=== PATIENT | male | born 1945 | race Caucasian/White ===

== ENCOUNTER 2022-02-12 11:20 | Inpatient (IN) | payer OTHER, SELFPAY ==
[2022-02-12] VITALS (10 sets, daily range): BP systolic 98–125; BP diastolic 71–95; PULSE 77–98; RESP 16–19; TEMP 36.1–36.5; O2SAT 93–959; BMI 24.6; BMI 24.7
--- NOTE | 2022-02-12 11:32 | EKG12_ITS ---
Test Reason : Blood Pressure : / mmHG Vent. Rate : 089 BPM Atrial Rate : 089 BPM P-R Int : 200 ms QRS Dur : 130 ms QT Int : 388 ms P-R-T Axes : 037 -18 077 degrees QTc Int : 472 ms Sinus rhythm with occasional Premature ventricular complexes Non-specific intra-ventricular conduction block Minimal voltage criteria for LVH, may be normal variant ( Oliver product ) Nonspecific T wave abnormality Abnormal ECG Confirmed by MICAH CHAPPELL, RAJESH ([id number]), international editorial producer YOLANDA YANES ([id number]) on 02/14/2022 9:16:28 AM Referred By: Confirmed By:RAJESH OBRIEN MD
--- NOTE | 2022-02-12 11:32 | EX.ED.DYSGE1 ---
HPI History of Present Illness Chief Complaint: Shortness of Breath Informant: patient, spouse/S.O. and family Narrative Narrative: 76-year-old male presenting to the emergency department with a chief complaint of dyspnea. Patient states that about 8 years ago he had prostate cancer and after being told he no longer has prostate cancer has not seen a doctor about 3 weeks ago. He went to see primary care because he developed dyspnea particularly worse with exertion. He states he had a chest x-ray was told that his lungs look normal. He denies any chest pain or chest pressure. does note some intermittent diaphoresis with exertion. He denies any eye known DVT PE risk factors. [facility] Medical History (Updated 02/12/22 @ 13:[address] Tito Goodson DO) History of prostate cancer Allergy/AdvReac Type Severity Reaction Status Date / Time Sulfa (Sulfonamide Allergy Vomiting Verified 02/12/22 11:21 Antibiotics) Social History (Updated 02/12/22 @ 11:[address] Tito Goodson DO) current gender identity: male Smoking Status: Never smoker substance use type: does not use ROS ROS ED Constitutional Constitutional ED: Denies chills or weight loss Eyes Eyes: Denies change in vision or diplopia ENT ENT ED: Denies ear pain, rhinorrhea or sore throat Cardiovascular Cardiovascular: Denies chest pain, orthopnea, palpitations or racing heartbeat Respiratory/Chest Respiratory/Chest: Reports dyspnea and dyspnea on exertion; Denies cough or orthopnea Gastrointestinal Gastrointestinal: Denies abdominal pain, diarrhea, nausea or vomiting Genitourinary Genitourinary ED: Denies dysuria, hematuria or urinary frequency Musculoskeletal Musculoskeletal: Denies arthralgias or myalgias Integumentary Denies abscess or rash Neurologic Neurologic: Denies headache(s) or weakness Psychiatric Psychiatric: Denies anxiety, depression, suicidal ideation or suicidal thoughts Endocrine Endocrinology: Denies polydipsia, polyphagia or polyuria Allergic/Immunologic Allergic/Immunologic ED: Denies mouth swelling, tongue swelling or urticaria EXAM Physical Exam Const Vital Signs: 02/12/22 11:21 02/12/22 12:37 Temperature 97.1 F L Temperature Source Temporal Pulse Rate 95 Respiratory Rate 16 Respiratory Effort Non-Labored Short of Breath Blood Pressure 119/95 H Blood Pressure Mean 103 Pulse Ox 93 Oxygen Delivery Method Room Air Room Air Positive well nourished and well developed General Appearance ED: well developed HEENT Reports normocephalic, head/scalp atraumatic and moist mucous membranes Eyes PERRL and EOMs intact bilaterally Neck no lymphadenopathy, supple and no JVD Resp normal respiratory effort and clear to auscultation bilaterally Cardio regular rate, regular rhythm and no murmurs Rate: tachycardic GI normal to inspection, nondistended, normoactive bowel sounds and non-tender Palpation: soft Back/Spine no CVA tenderness and normal ROM Extremity normal to inspection General Extremety ED: Negative for edema General Extremity: Negative for edema Neuro oriented x3 and CN's II-XII intact bilaterally Sensorium / Orientation: alert Motor Exam: strength 5/5 throughout Psych mental status grossly normal Mood & Affect: Negative for depressed or tearful Skin no rashes or lesions noted and no wounds MDM MDM MDM Narrative Medical decision making narrative: Basic blood work shows a D-dimer 0.61 that is age corrected to the normal range. Beta natruretic peptide is elevated at at 802. His troponin is normal at 49. Interpretation of the chest x-ray is a right-sided pleural effusion with CHF. Patient has no history of congestive heart failure. He has not had a cardiac evaluation would benefit from inpatient stabilization and diuresis. Lab Data Attestation: I reviewed the patient's lab results. Labs: Laboratory Results - last 24 hr 02/12/22 02/12/22 02/12/22 11:45 11:45 11:45 WBC 8.5 RBC 4.72 Hgb 14.2 Hct 41.6 MCV 88.1 MCH 30.1 MCHC 34.1 RDW Std Deviation 43.2 RDW Coeff of Jorge 13.3 Plt Count 238 MPV 8.4 Immature Gran % (Auto) 0.400 Neut % (Auto) 76.6 H Lymph % (Auto) 11.2 L [place] % (Auto) 10.4 H Eos % (Auto) 0.7 Baso % (Auto) 0.7 Absolute Neuts (auto) 6.5 Absolute Lymphs (auto) 0.95 Nucleated RBC % 0 D-Dimer Quant (PE/DVT) 0.61 H* Sodium 138 Potassium 4.2 Chloride 107 Carbon Dioxide 24.0 Anion Gap 7 BUN 22 H Creatinine 0.94 Estim Creat Clear Calc 62.66 Est GFR (MDRD) Af Amer 100 Est GFR (MDRD) Non-Af 82 BUN/Creatinine Ratio 23.4 H Glucose 111 H Calcium 8.9 Total Bilirubin 1.00 AST 20 ALT 29 Alkaline Phosphatase 52 Troponin I High Sens 49 B-Natriuretic Peptide Total Protein 7.0 Albumin 3.6 Globulin 3.4 Albumin/Globulin Ratio 1.1 02/12/22 11:45 WBC RBC Hgb Hct MCV MCH MCHC RDW Std Deviation RDW Coeff of Jorge Plt Count MPV Immature Gran % (Auto) Neut % (Auto) Lymph % (Auto) [place] % (Auto) Eos % (Auto) Baso % (Auto) Absolute Neuts (auto) Absolute Lymphs (auto) Nucleated RBC % D-Dimer Quant (PE/DVT) Sodium Potassium Chloride Carbon Dioxide Anion Gap BUN Creatinine Estim Creat Clear Calc Est GFR (MDRD) Af Amer Est GFR (MDRD) Non-Af BUN/Creatinine Ratio Glucose Calcium Total Bilirubin AST ALT Alkaline Phosphatase Troponin I High Sens B-Natriuretic Peptide 802.9 H Total Protein Albumin Globulin Albumin/Globulin Ratio Radiography Diagnostic Testing: Clinical Impression(s) from Imaging Studies Chest X-Ray 02/12/22 11:58 IMPRESSION: Small to moderate size right pleural effusion with right basilar atelectasis and/or infiltrate. Electronically Signed: Tony Gandhi MD at 12:18 EDT , Discharge Plan Dx/Rx/DC Orders Clinical Impression: CHF (congestive heart failure), Pleural effusion, Acute dyspnea Disposition Disposition: Acute Care [facility]
[2022-02-12 11:54] LABS: Absolute Lymphocyte Count 0.95 X10^3/uL (0.83-4.51); Absolute Neutrophil Count 6.5 X10^3/uL (2.0-7.7); Basophil# 0.06 X10^3/uL; Basophil% 0.7 % (0-1); Eosinophil# 0.06 X10^3/uL; Eosinophils% 0.7 % (0-5); Hematocrit 41.6 % (40-54); Hemoglobin 14.2 g/dL (13.0-16.5); Lymphocyte # 0.95 X10^3/ul (0.83-4.51); Lymphocyte % 11.2 % (19-41); Mean Corp Hgb Conc 34.1 g/dL (32-36); Mean Corpuscular Hgb 30.1 pg (27.0-32.0); Mean Corpuscular Volume 88.1 fL (80-94); Mean Platelet Vol. 8.4 fl (6.2-12.0); Monocyte# 0.88 X10^3/uL; Monocyte% 10.4 % (0-10); NRBC Flagged by Analyzer 0 % (0-5); Neutrophil # 6.48 X10^3/uL (2.7-7.7); Neutrophil % 76.6 % (47-70); Platelet Count 238 K/mm3 (150-450); RBC Distribution Width CV 13.3 % (11.6-14.6); RBC Distribution Width SD 43.2 fl (35.1-43.9); Red Blood Count 4.72 M/mm3 (4.6-6.2); White Blood Count 8.5 K/mm3 (4.4-11.0)
--- NOTE | 2022-02-12 11:58 | RAD_ITS ---
STUDY: X-RAY CHEST REASON FOR EXAM: Male, 76 years old. Dyspnea TECHNIQUE: Single AP portable view of the chest. COMPARISON: None. FINDINGS: EKG electrodes are seen. Small to moderate right pleural effusion with right basilar atelectasis and/or infiltrate. The left lung is clear. Normal size heart. Normal mediastinum and gaudencio. Normal visualized pulmonary arteries. There is atherosclerotic calcification of the aortic arch with tortuosity. There are degenerative changes of the visualized thoracic spine. Normal visualized ribs, clavicles, and shoulders. There is no demonstrated abnormality of the visualized soft tissue structures of the upper abdomen. RAD/Chest 1 View (Portable) IMPRESSION: Small to moderate size right pleural effusion with right basilar atelectasis and/or infiltrate. Electronically Signed: Tony Gandhi MD at 12:18 EDT ,
[2022-02-12 12:07] LABS: D-Dimer Quantitative (DVT/PE) 0.61 FEU/ug/m (0.27-0.49)
[2022-02-12 12:11] LABS: BNP,B-Type NATRIURETIC PEPTIDE 802.9 pg/mL (0-100)
[2022-02-12 12:12] LABS: ALB/GLOB Ratio 1.1 RATIO (0.9-2.4); AST(SGOT) 20 U/L (15-37); Alanine Aminotransfer ALT/SGPT 29 U/L (16-61); Albumin, Serum 3.6 g/dL (3.2-5.0); Alkaline Phosphatase 52 U/L (45-117); Anion Gap 7 (5-15); BUN 22 mg/dL (7-18); BUN/Creat Ratio 23.4 RATIO (10-20); Calcium,Total 8.9 mg/dL (8.5-10.1); Chloride 107 mmol/L (98-107); Creatinine, Serum 0.94 mg/dL (0.70-1.30); EST Glomerular Filtration Rate 82 mL/min (>60); Est Glom Filt Rate - Afr Amer 100 mL/min (>60); Estimated Creatinine Clearance 62.66 ml/min; Globulin 3.4 g/dL (2.2-4.2); Glucose 111 mg/dL (74-106); Potassium 4.2 mmol/L (3.5-5.1); Sodium Level 138 mmol/L (136-145); Troponin-I HS 49 pg/mL (3.0-78.0)
--- NOTE | 2022-02-12 13:25 | PCM.HP.STD ---
HPI - General General Date of Admission: 02/12/22 Date of Service: 02/12/22 Chief Complaint: Shortness of breath ongoing for some days HPI Narrative IVOLA YEPEZ, is a 76 M who presents with the above. Patient has a remote history of prostate cancer, reportedly in remission, not seen any physician for more than 8 years who comes in with complaints of shortness of breath worse with exertion. He also admits to PND but denies orthopnea. He denies any leg swelling or weight gain. He rather has lost weight. He denies any fever or chills. Denied any new medications or pvgm-diu-eaujfsl meds or herbs. He denied any dizziness or palpitations. Vitals in the ED showed blood pressure 119/95, heart rate 95, respiratory rate 16, temperature 97.5, oxygen saturation 93% on room air. WBC count 8.5 hemoglobin 14.2, platelet count 238, D-dimer 0.61, CMP was remarkable for BUN of 22, creatinine 0.94. Bnpep 802.9 Chest x-ray showed small to moderate size right pleural effusion with right basilar atelectasis and or infiltrate. [facility] Medical History History of prostate cancer Home Medications NK 02/12/22 [History Last Taken Unknown] Allergy/AdvReac Type Severity Reaction Status Date / Time Sulfa (Sulfonamide Allergy Vomiting Verified 02/12/22 11:21 Antibiotics) Family History (Updated 02/12/22 @ 18:[address] Lizette Leal MD) Mother Heart disease Father No problems noted. Surgical History (Updated 02/12/22 @ 18:[address] Lizette Leal MD) Hx of tonsillectomy Social History (Updated 02/12/22 @ 18:[address] Lizette Leal MD) household members: spouse housing: house current gender identity: male Smoking Status: Never smoker alcohol intake: never substance use type: does not use ROS ROS Narrative Constitutional: Denies: Anorexia, Chills, Fever, Night Sweats, Weight Change Eyes: Denies: Blurred vision, Cataracts, Conjunctivae Inflammation, Pain, Redness, Vision Change HEENT: Denies: Difficulty Hearing, Difficulty Swallowing, Head Aches, Hearing Changes, Sinus Congestion, Sinus Drainage Cardiovascular: See HPI Respiratory: Denies: Cough, Shortness of breath at rest, Sputum production Gastrointestinal: Denies: Abdominal Pain, Nausea, Vomiting Genitourinary: Denies: Dysuria Musculoskeletal: Denies: Joint Pain, Joint stiffness, Joint swelling, Joint Tenderness Skin: Denies: Rash, Wounds Neurological: Denies: Numbness, Tingling, Focal weakness Vital Signs Vital Signs Vital Signs: 02/12/22 11:21 02/12/22 12:37 Temperature 97.1 F L Temperature Source Temporal Pulse Rate 95 Respiratory Rate 16 Respiratory Effort Non-Labored Short of Breath Blood Pressure 119/95 H Blood Pressure Mean 103 Pulse Ox 93 Oxygen Delivery Method Room Air Room Air Weight Weight: 73.482 kg Body Mass Index (BMI) 24.6 Physical Exam Narrative Physical exam: General: Alert, Oriented x3, Cooperative, No apparent distress, not on oxygen, with mild conversational dyspnea HEENT: Atraumatic Oral: Moist Mucosa Neck: Supple Lungs: Clear to auscultation Cardiovascular: HS I+II, regular, no murmurs Abdomen: Bowel Sounds Present, Soft, Non Tender Extremities: No edema Skin: No rashes, No breakdown Neurological: Grossly intact Psych/Mental Status: Appropriate Results Lab / Micro Data Result Diagrams: 02/12/22 11:45 02/12/22 11:45 Labs: Laboratory Results - last 24 hr 02/12/22 11:45: WBC 8.5, RBC 4.72, Hgb 14.2, Hct 41.6, MCV 88.1, MCH 30.1, MCHC 34.1, RDW Std Deviation 43.2, RDW Coeff of Jorge 13.3, Plt Count 238, MPV 8.4, Immature Gran % (Auto) 0.400, Neut % (Auto) 76.6 H, Lymph % (Auto) 11.2 L, [place] % (Auto) 10.4 H, Eos % (Auto) 0.7, Baso % (Auto) 0.7, Absolute Neuts (auto) 6.5, Absolute Lymphs (auto) 0.95, Nucleated RBC % 0 02/12/22 11:45: D-Dimer Quant (PE/DVT) 0.61 H* 02/12/22 11:45: Sodium 138, Potassium 4.2, Chloride 107, Carbon Dioxide 24.0, Anion Gap 7, BUN 22 H, Creatinine 0.94, Estim Creat Clear Calc 62.66, Est GFR (MDRD) Af Amer 100, Est GFR (MDRD) Non-Af 82, BUN/Creatinine Ratio 23.4 H, Glucose 111 H, Calcium 8.9, Total Bilirubin 1.00, AST 20, ALT 29, Alkaline Phosphatase 52, Troponin I High Sens 49, Total Protein 7.0, Albumin 3.6, Globulin 3.4, Albumin/Globulin Ratio 1.1 02/12/22 11:45: B-Natriuretic Peptide 802.9 H Radiology Impression Chest X-Ray 02/12/22 11:58 IMPRESSION: Small to moderate size right pleural effusion with right basilar atelectasis and/or infiltrate. Electronically Signed: Tony Gandhi MD at 12:18 EDT , Assessment & Plan Assessment/Plan (1) CHF (congestive heart failure): (2) Pleural effusion: PLAN: Plan 1. Acute CHF, unknown EF Admitting EKG shows normal sinus rhythm Will admit to PCU, start on Lasix 40 mg IV twice daily Continue on CHF protocol Check TSH, trend troponins, 2D echo 2. History of prostate CA, in remission 3. DVT prophylaxis?heparin subcu Charges/Coding Visit Charges Inpatient E&M: 16643 Init Hosp L3
[2022-02-12] MEDS: Aspirin 325 MG Tablet PO (13:39)
[2022-02-12] MEDS: Furosemide 100 MG/10 ML Vial 60 MG IV (13:40)
--- NOTE | 2022-02-12 15:34 | ECHOD_ITS ---
Reason For Study: CHF Procedure This was a 2D Doppler, Color Flow transthoracic echocardiogram. Exam performed portable in patient room. Left Ventricle Severely dilated left ventricle. The estimated ejection fraction is 15-20 %. Right Ventricle Normal right ventricle. Normal systolic function. Atria The left atrium is moderately enlarged. Normal right atrium. Mitral Valve There is moderate mitral annular calcification. Moderate (2+) mitral valve insufficiency. Tricuspid Valve Normal tricuspid valve. Mild tricuspid valve insufficiency. Aortic Valve Moderate diffuse aortic valve calcification. Mild aortic stenosis. Mild (1+) aortic valve insufficiency. Pulmonic Valve The pulmonic valve is not well visualized. Great Vessels Normal aortic root. Pericardium/Pleural No pericardial effusion. MMode/2D Measurements & Calculations LVIDd: 6.5 cm IVSd: 0.96 cm Ao root diam: 3.3 cm LVIDs: 5.7 cm LVPWd: 1.1 cm RVDd: 2.6 cm FS: 12.5 % LAV(MOD-bp): 81.2 ml LVAd ap4: 45.4 cm2 LVAd ap2: 47.8 cm2 LAV(MOD-bp) Indexed: 44.0 ml/m2 LVLd ap4: 8.2 cm LVLd ap2: 9.2 cm LAV(MOD-sp2): 84.1 ml EDV(MOD-sp4): 201.7 ml EDV(MOD-sp2): 211.5 ml LAV(MOD-sp4): 73.4 ml EDV(sp4-el): 213.5 ml EDV(sp2-el): 210.8 ml LVAs ap4: 41.2 cm2 LVAs ap2: 42.9 cm2 LVLs ap4: 8.1 cm LVLs ap2: 9.2 cm ESV(MOD-sp4): 169.6 ml ESV(MOD-sp2): 171.2 ml ESV(sp4-el): 177.1 ml ESV(sp2-el): 169.8 ml EF(MOD-sp4): 15.9 % EF(MOD-sp2): 19.1 % EF(sp4-el): 17.0 % SV(MOD-sp4): 32.1 ml SV(MOD-sp2): 40.3 ml SV(sp4-el): 36.4 ml LA dimension(2D): 4.9 cm LA A4 area: 20.3 cm2 RA A4 area: 10.9 cm2 Doppler Measurements & Calculations MV E max jeremy: 120.2 cm/sec Lat Peak E' Jeremy: 8.3 cm/sec Med Peak E' Jeremy: 4.0 cm/sec MV A max jeremy: 140.2 cm/sec E/E' lat: 14.4 E/E' med: 30.1 MV E/A: 0.86 Ao V2 max: 206.4 cm/sec LV V1 max: 117.8 cm/sec MR max jeremy: 458.1 cm/sec Ao max P.9 mmHg LV V1 max P.6 mmHg MR max P.0 mmHg Ao V2 mean: 144.9 cm/sec LV V1 mean P.0 mmHg MR mean jeremy: 317.1 cm/sec Ao mean P.6 mmHg LV V1 mean: 80.3 cm/sec MR mean P.8 mmHg Ao V2 VTI: 38.4 cm LV V1 VTI: 18.4 cm MR VTI: 147.6 cm PA V2 max: 66.9 cm/sec TR max jeremy: 229.8 cm/sec TR max P.1 mmHg ECHO/Echo Complete Interpretation Summary The estimated ejection fraction is 15-20 %. Severe LV systolic Dysfunction Moderate Eccentric MR No prior echo to compare Ordering Physician: Lizette Leal Performed By: Savannah Ferro RCS
[2022-02-12 16:14] LABS: Thyroid Stim Hormone (TSH) 1.45 uIU/mL (0.358-3.74)
[2022-02-12] MEDS: Furosemide 40 MG/4 ML Vial IV (17:22)
[2022-02-12] MEDS: 0.9% Saline Lock 10 ML Syringe IV (17:22)
[2022-02-12 18:07] LABS: Troponin-I HS 54 pg/mL (3.0-78.0)
[2022-02-12] MEDS: Heparin Injection (Vial) 5,000 UNIT/ML VIAL 5000 UNIT SC (21:57)
[2022-02-12] MEDS: MELATONIN 3 MG TABLET PO (22:22)
[2022-02-13] VITALS (10 sets, daily range): BP systolic 100–116; BP diastolic 73–82; PULSE 73–96; RESP 12–16; TEMP 36.5–37; O2SAT 93–98
[2022-02-13] MEDS: Heparin Injection (Vial) 5,000 UNIT/ML VIAL 5000 UNIT SC ×2 (06:15→21:51)
[2022-02-13 06:58] LABS: Absolute Lymphocyte Count 1.41 X10^3/uL (0.83-4.51); Basophil# 0.04 X10^3/uL; Basophil% 0.5 % (0-1); Eosinophil# 0.13 X10^3/uL; Eosinophils% 1.7 % (0-5); Hematocrit 41.3 % (40-54); Hemoglobin 14.3 g/dL (13.0-16.5); Lymphocyte # 1.41 X10^3/ul (0.83-4.51); Lymphocyte % 18.4 % (19-41); Mean Corp Hgb Conc 34.6 g/dL (32-36); Mean Corpuscular Hgb 29.7 pg (27.0-32.0); Mean Corpuscular Volume 85.7 fL (80-94); Mean Platelet Vol. 8.7 fl (6.2-12.0); Monocyte# 1.01 X10^3/uL; Monocyte% 13.2 % (0-10); NRBC Flagged by Analyzer 0 % (0-5); Neutrophil # 5.04 X10^3/uL (2.7-7.7); Neutrophil % 65.8 % (47-70); Platelet Count 255 K/mm3 (150-450); RBC Distribution Width CV 13.2 % (11.6-14.6); RBC Distribution Width SD 41.1 fl (35.1-43.9); Red Blood Count 4.82 M/mm3 (4.6-6.2); White Blood Count 7.7 K/mm3 (4.4-11.0)
[2022-02-13 07:53] LABS: ALB/GLOB Ratio 1.1 RATIO (0.9-2.4); AST(SGOT) 20 U/L (15-37); Alanine Aminotransfer ALT/SGPT 25 U/L (16-61); Albumin, Serum 3.5 g/dL (3.2-5.0); Alkaline Phosphatase 53 U/L (45-117); Anion Gap 5 (5-15); BUN 27 mg/dL (7-18); BUN/Creat Ratio 22.3 RATIO (10-20); Chloride 102 mmol/L (98-107); Creatinine, Serum 1.21 mg/dL (0.70-1.30); EST Glomerular Filtration Rate 62 mL/min (>60); Est Glom Filt Rate - Afr Amer 74 mL/min (>60); Estimated Creatinine Clearance 48.68 ml/min; Globulin 3.2 g/dL (2.2-4.2); Glucose 99 mg/dL (74-106); Potassium 3.8 mmol/L (3.5-5.1); Protein, Total 6.7 g/dL (6.4-8.2); Sodium Level 138 mmol/L (136-145)
[2022-02-13] MEDS: Furosemide 40 MG/4 ML Vial IV (10:26)
--- NOTE | 2022-02-13 10:35 | CASEMGMT ---
RN CM Face to Face with patient for initial transition planning/care coordination assessment. RN CM introduced self and role at [facility]. Patient lying in bed, alert and oriented, family at bedside. Patient willing to participate in assessment and is able to answer all questions appropriately. Care providers, pharmacy, and demographics verified. Patient wishes to discharge home, denies need for home health at this time. Patient states he has no further needs or concerns at this time. CM to follow for discharge planning needs that may arise. PCP: Mikie Specialists: none Preferred Pharmacy: [facility] at discharge Insurance: [facility] [place] Pres[place] Benefit: none Living Will/HPOA: none LNOK: , daughter Living Arrangements: Patient lives with in a 2 story home with bed and bath on first floor. 1-2 steps to enter the home. Patient is independent at home. Transportation: rides bicycle or uses driving service DME/HHC: Patient has cane and BP cuff at home. No previous HHC or SNF. Disposition Plan: Patient to discharge home with family support and follow-up plans in place. Ira SMITH, RN, CM
--- NOTE | 2022-02-13 11:09 | CASEMGMT ---
Pt does not qualify for home oxygen per nursing. Luke BOYD CM
--- NOTE | 2022-02-13 12:34 | DCINST_ITS ---
Discharge Instructions Diet Discharge Diet: Low fat / Low cholesterol and 2000 mg Sodium Diet Activity Discharge Activity: Return to Normal Activity Follow Up Care Test Results: Test results from this visit will be discussed in further detail at your follow- up appointment, if applicable. Discharge Plan Admission Admit Date/Time: 02/12/22 13:22 Primary Reason for Your Visit: Acute CHF Attending Provider: Lizette Leal Instructions Additional Instructions / Restrictions: Continue to take all your medications as prescribed. Continue on a low-fat low-salt diet. Weigh yourself every day. Let your doctor know when you gain more than 4 pounds of weight. Follow-up with your primary care doctor within 1 week to get blood work done to check on your kidney function Follow-up with the motorcycle subassembly repairer in 2-4 weeks. Discharge Orders/Prescriptions Prescriptions: New furosemide [Lasix] 20 mg tablet 20 mg PO BID 30 Days Qty: 60 0RF Referrals / Follow Up: Carlos Costello MD [STAFF PHYSICIAN] - Within 1 Month Town Doctor,Out of [NON-STAFF] - In 1 Week Disposition Disposition (needs filled in before D/C Order can be placed): Home, Self Care
[2022-02-13 13:11] LABS: Magnesium 2.1 mg/dL (1.6-2.6)
--- NOTE | 2022-02-13 14:21 | PHA.DC.MC ---
Pharmacy Service has performed discharge medication reconciliation and counseling for this patient. 1. FUROSEMIDE 20MG PO BID The patient's discharge medication list was reviewed for discrepancies and discrepancies were resolved. Home Medications furosemide 20 mg tablet (Lasix) 20 mg PO BID 30 days #60 tabs 02/13/22 The patient was counseled on the following discharge medications and changes in medications for homegoing were reviewed. The Reason for Use, instructions for use, and potential side effects were reviewed for all new medications. The patient's questions regarding all of their medications were answered. The patient was able to verbally demonstrate an understanding of their discharge medications.
--- NOTE | 2022-02-13 15:22 | PCM.DC.SUM ---
Providers Date of Admission: 02/12/22 Date of Discharge: 02/13/22 Reason For Visit: ACUTE CHF Diagnosis Discharge Diagnosis (1) CHF (congestive heart failure): Status: Acute Code(s): I50.9 - Heart failure, unspecified (2) Pleural effusion: Status: Acute Code(s): J90 - Pleural effusion, not elsewhere classified Medications at Discharge Home Medications furosemide 20 mg tablet (Lasix) 20 mg PO BID 30 days #60 tabs 02/13/22 Hospital Course Operations None Procedures None Summary of Care Provided Minutes Spent on Discharge: 40 Hospital Course: 76-year-old male with remote history of prostate CA who comes in with progressive shortness of breath with and PND. Patient BN peptide in the emergency room was 802.9. Chest x-ray showed small to moderate size right pleural effusion and right basilar atelectasis. Patient was admitted to the progressive care unit for management of acute CHF. Managed with Lasix with improvement. EKG showed normal sinus rhythm, no acute changes. TSH was normal. 2D echo showed He was discharged on oral Lasix 20mg BID. He will follow-up with PCP within 1 week. Follow-up with cardiology within 2 weeks. Physical Exam Narrative Physical exam: General: Alert, Oriented x3, Cooperative, not on oxygen Oral: Moist Mucosa Neck: Supple Lungs: Clear to auscultation Cardiovascular: HS I+II, regular, no murmurs Abdomen: Bowel Sounds Present, Soft, Non Tender Extremities: No edema Skin: No rashes, No breakdown Neurological: Grossly intact Psych/Mental Status: Appropriate Weight / BMI Weight Weight: 71.5 kg Body Mass Index (BMI) 24.7 ABG / Lab / Microbiology Data Result Diagrams: 02/13/22 05:55 02/13/22 05:55 Laboratory: Laboratory Results - last 24 hr 02/12/22 11:45: TSH 1.45 02/12/22 17:30: Troponin I High Sens 54 02/13/22 05:55: WBC 7.7, RBC 4.82, Hgb 14.3, Hct 41.3, MCV 85.7, MCH 29.7, MCHC 34.6, RDW Std Deviation 41.1, RDW Coeff of Jorge 13.2, Plt Count 255, MPV 8.7, Immature Gran % (Auto) 0.400, Neut % (Auto) 65.8, Lymph % (Auto) 18.4 L, [place] % (Auto) 13.2 H, Eos % (Auto) 1.7, Baso % (Auto) 0.5, Absolute Neuts (auto) 5.0, Absolute Lymphs (auto) 1.41, Nucleated RBC % 0 02/13/22 05:55: Sodium 138, Potassium 3.8, Chloride 102, Carbon Dioxide 31.0, Anion Gap 5, BUN 27 H, Creatinine 1.21, Estim Creat Clear Calc 48.68, Est GFR (MDRD) Af Amer 74, Est GFR (MDRD) Non-Af 62, BUN/Creatinine Ratio 22.3 H, Glucose 99, Calcium 9.0, Total Bilirubin 1.50 H, AST 20, ALT 25, Alkaline Phosphatase 53, Total Protein 6.7, Albumin 3.5, Globulin 3.2, Albumin/Globulin Ratio 1.1 02/13/22 05:55: Magnesium 2.1 D/C Instructions Discharge Diet: Low fat / Low cholesterol and 2000 mg Sodium Diet Meaningful Use Info Meaningful Use Diagnoses (Choose all that apply): None applicable Discharge Plan Admission Admit Date/Time: 02/12/22 13:22 Primary Reason for Your Visit: Acute CHF Attending Provider: Lizette Leal Instructions Additional Instructions / Restrictions: Continue to take all your medications as prescribed. Continue on a low-fat low-salt diet. Weigh yourself every day. Let your doctor know when you gain more than 4 pounds of weight. Follow-up with your primary care doctor within 1 week to get blood work done to check on your kidney function Follow-up with the special procedures tech in 2-4 weeks. Discharge Orders/Prescriptions Prescriptions: New furosemide [Lasix] 20 mg tablet 20 mg PO BID 30 Days Qty: 60 0RF Referrals / Follow Up: Carlos Costello MD [STAFF PHYSICIAN] - Within 1 Month Town Doctor,Out of [NON-STAFF] - In 1 Week Disposition Disposition (needs filled in before D/C Order can be placed): Home, Self Care Charges/Coding Visit Charges Inpatient E&M: 30793 Disch Hosp
[2022-02-13] MEDS: MELATONIN 3 MG TABLET PO (21:51)
[2022-02-14] VITALS (11 sets, daily range): BP systolic 92–115; BP diastolic 58–87; PULSE 69–95; RESP 16–20; TEMP 36.5–37.2; O2SAT 98–99
[2022-02-14] MEDS: Heparin Injection (Vial) 5,000 UNIT/ML VIAL 5000 UNIT SC ×3 (05:10→21:45)
[2022-02-14 06:40] LABS: Absolute Lymphocyte Count 1.34 X10^3/uL (0.83-4.51); Absolute Neutrophil Count 5.2 X10^3/uL (2.0-7.7); Basophil# 0.06 X10^3/uL; Basophil% 0.8 % (0-1); Eosinophil# 0.13 X10^3/uL; Eosinophils% 1.7 % (0-5); Hematocrit 42.4 % (40-54); Hemoglobin 14.3 g/dL (13.0-16.5); Lymphocyte # 1.34 X10^3/ul (0.83-4.51); Lymphocyte % 17.8 % (19-41); Mean Corp Hgb Conc 33.7 g/dL (32-36); Mean Corpuscular Volume 89.1 fL (80-94); Mean Platelet Vol. 8.6 fl (6.2-12.0); Monocyte# 0.81 X10^3/uL; Monocyte% 10.8 % (0-10); NRBC Flagged by Analyzer 0 % (0-5); Neutrophil # 5.15 X10^3/uL (2.7-7.7); Neutrophil % 68.5 % (47-70); Platelet Count 232 K/mm3 (150-450); RBC Distribution Width CV 13.2 % (11.6-14.6); RBC Distribution Width SD 43.1 fl (35.1-43.9); Red Blood Count 4.76 M/mm3 (4.6-6.2); White Blood Count 7.5 K/mm3 (4.4-11.0)
[2022-02-14 07:11] LABS: AST(SGOT) 22 U/L (15-37); Alanine Aminotransfer ALT/SGPT 24 U/L (16-61); Albumin, Serum 3.5 g/dL (3.2-5.0); Alkaline Phosphatase 52 U/L (45-117); Anion Gap 5 (5-15); BUN 32 mg/dL (7-18); BUN/Creat Ratio 28.8 RATIO (10-20); Calcium,Total 8.8 mg/dL (8.5-10.1); Chloride 102 mmol/L (98-107); Creatinine, Serum 1.11 mg/dL (0.70-1.30); EST Glomerular Filtration Rate 68 mL/min (>60); Est Glom Filt Rate - Afr Amer 82 mL/min (>60); Estimated Creatinine Clearance 53.06 ml/min; Globulin 3.4 g/dL (2.2-4.2); Glucose 113 mg/dL (74-106); Potassium 3.7 mmol/L (3.5-5.1); Protein, Total 6.9 g/dL (6.4-8.2); Sodium Level 137 mmol/L (136-145)
--- NOTE | 2022-02-14 07:45 | PN.HOSP_ITS ---
Subjective Subjective Late entry note: Patient was seen on 02/13/22. He was supposed to be discharged but his 2D-ECHO came back abnormal. Follow-up on Acute CHF: Patient was seen and examined. He denied any chest pain or dizziness. Objective Data Objective Data Vital Signs: Vital Signs Temp Pulse Resp BP Pulse Ox O2 Del Method O2 Flow Rate 98.9 F 77 20 H 92/73 98 Room Air 0 02/14/22 03:02/14/22 03:25 02/14/22 03:02/14/22 03:25 02/14/22 03:25 02/14/22 03:25 02/13/22 10:21 Oxygen Flow Rate (L/min) [ 0 AMBULATING on Room Air] Oxygen Flow Rate (L/min) [At 0 REST on Room Air] Oxygen Delivery Method Room Air Weight: 70.5 kg Body Mass Index (BMI) 24.7 Intake & Output: Intake and Output for Last 24 Hours 02/12/22 02/13/22 02/14/22 23:59 23:59 23:59 Intake Total 1200 / 1320 120 / 120 Balance 1200 / 1320 120 / 120 Lab / Micro Data Result Diagrams: 02/14/22 06:12 02/14/22 06:12 Labs: Laboratory Results - last 24 hr 02/13/22 05:55: Sodium 138, Potassium 3.8, Chloride 102, Carbon Dioxide 31.0, Anion Gap 5, BUN 27 H, Creatinine 1.21, Estim Creat Clear Calc 48.68, Est GFR (MDRD) Af Amer 74, Est GFR (MDRD) Non-Af 62, BUN/Creatinine Ratio 22.3 H, Glucose 99, Calcium 9.0, Total Bilirubin 1.50 H, AST 20, ALT 25, Alkaline Phosphatase 53, Total Protein 6.7, Albumin 3.5, Globulin 3.2, Albumin/Globulin Ratio 1.1 02/13/22 05:55: Magnesium 2.1 02/14/22 06:12: WBC 7.5, RBC 4.76, Hgb 14.3, Hct 42.4, MCV 89.1, MCH 30.0, MCHC 33.7, RDW Std Deviation 43.1, RDW Coeff of Jorge 13.2, Plt Count 232, MPV 8.6, Immature Gran % (Auto) 0.400, Neut % (Auto) 68.5, Lymph % (Auto) 17.8 L, [place] % (Auto) 10.8 H, Eos % (Auto) 1.7, Baso % (Auto) 0.8, Absolute Neuts (auto) 5.2, Absolute Lymphs (auto) 1.34, Nucleated RBC % 0 02/14/22 06:12: Sodium 137, Potassium 3.7, Chloride 102, Carbon Dioxide 30.0, Anion Gap 5, BUN 32 H, Creatinine 1.11, Estim Creat Clear Calc 53.06, Est GFR (MDRD) Af Amer 82, Est GFR (MDRD) Non-Af 68, BUN/Creatinine Ratio 28.8 H, Glucose 113 H, Calcium 8.8, Total Bilirubin 1.40 H, AST 22, ALT 24, Alkaline Phosphatase 52, Total Protein 6.9, Albumin 3.5, Globulin 3.4, Albumin/Globulin Ratio 1.0 Radiography Diagnostic Testing: Radiology Impression Echocardiogram 02/12/22 15:34 Interpretation Summary The estimated ejection fraction is 15-20 %. Severe LV systolic Dysfunction Moderate Eccentric MR No prior echo to compare Ordering Physician: Lizette Leal Performed By: Savannah Ferro RCS Physical Exam Narrative Physical exam: General: Alert, Oriented x3, Cooperative, no apparent distress, not on oxygen, with mild conversational dyspnea HEENT: Atraumatic Oral: Moist Mucosa Neck: Supple Lungs: Clear to auscultation Cardiovascular: HS I+II, regular, no murmurs Abdomen: Bowel Sounds Present, Soft, Non Tender Extremities: No edema Skin: No rashes, No breakdown Neurological: Grossly intact Psych/Mental Status: Appropriate Assessment & Plan Assessment/Plan (1) CHF (congestive heart failure): (2) Pleural effusion: (3) Acute dyspnea: PLAN: Plan 1. Acute heart failure with reduced EF, EF 15-20% Admitting EKG shows normal sinus rhythm 2D-ECHO showed EF 15-20%, moderate +2 mitral valve/aortic insufficiency Continue on oral Lasix 2. History of prostate CA, in remission 3. DVT prophylaxis?heparin subcu Charges/Coding Visit Charges Inpatient E&M: 82546 Subs Hosp L2
--- NOTE | 2022-02-14 07:46 | PN.HOSP_ITS ---
Subjective Subjective Follow-up on acute heart failure with reduced EF: Patient was seen and examined today. I met with the and his son as well as the patient at the bedside. Answered all your questions. He denied any new complaints. He is not short of breath. Objective Data Objective Data Vital Signs: Vital Signs Temp Pulse Resp BP Pulse Ox O2 Del Method O2 Flow Rate 98.9 F 77 20 H 92/73 98 Room Air 0 02/14/22 03:25 02/14/22 03:02/14/22 03:02/14/22 03:25 02/14/22 03:02/14/22 03:25 02/13/22 10:21 Oxygen Flow Rate (L/min) [ 0 AMBULATING on Room Air] Oxygen Flow Rate (L/min) [At 0 REST on Room Air] Oxygen Delivery Method Room Air Weight: 70.5 kg Body Mass Index (BMI) 24.7 Intake & Output: Intake and Output for Last 24 Hours 02/12/22 02/13/22 02/14/22 23:59 23:59 23:59 Intake Total 1200 / 1320 120 / 120 Balance 1200 / 1320 120 / 120 Lab / Micro Data Result Diagrams: 02/14/22 06:12 02/14/22 06:12 Labs: Laboratory Results - last 24 hr 02/13/22 05:55: Sodium 138, Potassium 3.8, Chloride 102, Carbon Dioxide 31.0, Anion Gap 5, BUN 27 H, Creatinine 1.21, Estim Creat Clear Calc 48.68, Est GFR (MDRD) Af Amer 74, Est GFR (MDRD) Non-Af 62, BUN/Creatinine Ratio 22.3 H, Glucose 99, Calcium 9.0, Total Bilirubin 1.50 H, AST 20, ALT 25, Alkaline Phosphatase 53, Total Protein 6.7, Albumin 3.5, Globulin 3.2, Albumin/Globulin Ratio 1.1 02/13/22 05:55: Magnesium 2.1 02/14/22 06:12: WBC 7.5, RBC 4.76, Hgb 14.3, Hct 42.4, MCV 89.1, MCH 30.0, MCHC 33.7, RDW Std Deviation 43.1, RDW Coeff of Jorge 13.2, Plt Count 232, MPV 8.6, Immature Gran % (Auto) 0.400, Neut % (Auto) 68.5, Lymph % (Auto) 17.8 L, [place] % (Auto) 10.8 H, Eos % (Auto) 1.7, Baso % (Auto) 0.8, Absolute Neuts (auto) 5.2, Absolute Lymphs (auto) 1.34, Nucleated RBC % 0 02/14/22 06:12: Sodium 137, Potassium 3.7, Chloride 102, Carbon Dioxide 30.0, Anion Gap 5, BUN 32 H, Creatinine 1.11, Estim Creat Clear Calc 53.06, Est GFR (MDRD) Af Amer 82, Est GFR (MDRD) Non-Af 68, BUN/Creatinine Ratio 28.8 H, Glucose 113 H, Calcium 8.8, Total Bilirubin 1.40 H, AST 22, ALT 24, Alkaline Phosphatase 52, Total Protein 6.9, Albumin 3.5, Globulin 3.4, Albumin/Globulin Ratio 1.0 Radiography Diagnostic Testing: Radiology Impression Echocardiogram 02/12/22 15:34 Interpretation Summary The estimated ejection fraction is 15-20 %. Severe LV systolic Dysfunction Moderate Eccentric MR No prior echo to compare Ordering Physician: Lizette Leal Performed By: Savannah Ferro RCS Physical Exam Narrative Physical exam: General: Alert, Oriented x3, Cooperative, no apparent distress HEENT: Atraumatic Oral: Moist Mucosa Neck: Supple Lungs: Clear to auscultation Cardiovascular: HS I+II, regular, no murmurs Abdomen: Bowel Sounds Present, Soft, Non Tender Extremities: No edema Skin: No rashes, No breakdown Neurological: Grossly intact Psych/Mental Status: Appropriate Assessment & Plan Assessment/Plan (1) CHF (congestive heart failure): (2) Pleural effusion: (3) Acute dyspnea: PLAN: Plan 1. Acute heart failure with reduced EF, EF 15-20% Admitting EKG shows normal sinus rhythm 2D-ECHO showed EF 15-20%, moderate +2 mitral valve/aortic insufficiency Continue on oral Lasix 2. History of prostate CA, in remission 3. DVT prophylaxis?heparin subcu Charges/Coding Visit Charges Inpatient E&M: 98023 Subs Hosp L2
[2022-02-14] MEDS: Furosemide 20 MG Tablet PO ×2 (09:34→17:13)
--- NOTE | 2022-02-14 15:24 | CON.PCM.CA_ITS ---
Assessment & Plan Assessment/Plan (1) Acute on chronic clinical systolic heart failure: (2) Pleural effusion: PLAN: Plan 76-year-old patient, with history of epigastric upper chest discomfort patient admitted to progressive symptoms of shortness of breath The symptoms have been for the last 4 years patient noted his symptoms is getting worse on exertion especially when he is going up hills or when he was pi cking up his mail. Patient had a history of prostate cancer and has not been seen by primary care or urologist. For the last 8 years. On this admission noted patient has severe LV systolic dysfunction by echocardiogram with clinical diagnosis of acute on chronic systolic heart failure and a pleural effusion noted mainly on the right side Patient responded well to IV diuretic using Lasix 40 mg twice daily. EKG showed normal sinus, and cardiac work-up with a series of enzymes were n egative and his BNP level was elevated Cardiac care plan recommendations; 1. Patient scheduled to undergo left heart catheterization on Wednesday 2. We will review all the current medication and will consider adding beta- jordan carvedilol, Entresto, Aldactone, and based on cardiac catheterization findings, he will be seen and followed clinically by Dr. Costello to discuss cardiac care plan. All questions related to cardiac catheterization procedure and cardiac care plan at bedside for the patient and family as well as to the nursing staff. HPI Consult Data Date of Consult: 02/14/22 HPI Narrative Reason for Consultation: Patient with severe LV systolic dysfunction, EF 15-20% HPI Narrative: VIOLA YEPEZ, is a 76 M who presents [facility] Medical History (Updated 02/14/22 @ 15:[address] Heather Cloud MD) History of prostate cancer Home Medications furosemide 20 mg tablet (Lasix) 20 mg PO BID 30 days #60 tabs 02/13/22 [Rx Last Taken Unknown] Allergy/AdvReac Type Severity Reaction Status Date / Time Sulfa (Sulfonamide Allergy Vomiting Verified 02/12/22 11:21 Antibiotics) Family History (Updated 02/12/22 @ 18:[address] Lizette Leal MD) Mother Heart disease Father No problems noted. Surgical History (Updated 02/12/22 @ 18:[address] Lizette Leal MD) Hx of tonsillectomy Social History (Updated 02/12/22 @ 18:[address] Lizette Leal MD) household members: spouse housing: house current gender identity: male Smoking Status: Never smoker alcohol intake: never substance use type: does not use Physical Exam Narrative Patient seen and evaluated at bedside along with the nursing staff at bedside at time of evaluation Alert orientated x3 Not in acute distress Comfortable in bed with no symptoms of chest pain Cardiovascular exam; cardiac rhythm is sinus rhythm, S1-S2 regular, he had ejection systolic murmur in the aortic valve. No diastolic murmur Chest exam clear to auscultation bilateral. Examination lower extremity no clubbing no cyanosis no lower extremity edema. Risk Stratification Risk Stratification Applicable: Yes Age >/= 65: Yes >/= 3 CAD Risk Factors (HTN, HLD, DM, family hx of CAD, or current smoker): No Aspirin Use in the Past 7 Days: No Severe Angina (>/= episodes in 24 hours): Yes EKG ST Changes >/= 0.5mm: No Positive Cardiac Marker: No JONNY Risk Stratification Score: 2 JONNY % Risk: 8% Risk Objective Data Vital Signs: Vital Signs Temp Pulse Resp BP Pulse Ox O2 Del Method O2 Flow Rate 97.8 F 95 16 102/70 98 Room Air 0 02/14/22 13:54 02/14/22 14:59 02/14/22 13:54 02/14/22 13:54 02/14/22 13:54 02/14/22 13:54 02/13/22 10:21 Oxygen Flow Rate (L/min) [ 0 AMBULATING on Room Air] Oxygen Flow Rate (L/min) [At 0 REST on Room Air] Oxygen Delivery Method Room Air Weight: 155 lb 6.814 oz Body Mass Index (BMI) 24.7 Intake & Output: Intake and Output for Last 24 Hours 02/12/22 02/13/22 02/14/22 23:59 23:59 23:59 Intake Total 1200 / 1320 120 / 120 Balance 1200 / 1320 120 / 120 Lab / Micro Data Result Diagrams: 02/14/22 06:12 02/14/22 06:12 Labs: Laboratory Results - last 24 hr 02/14/22 06:12: WBC 7.5, RBC 4.76, Hgb 14.3, Hct 42.4, MCV 89.1, MCH 30.0, MCHC 33.7, RDW Std Deviation 43.1, RDW Coeff of Jorge 13.2, Plt Count 232, MPV 8.6, Immature Gran % (Auto) 0.400, Neut % (Auto) 68.5, Lymph % (Auto) 17.8 L, [place] % (Auto) 10.8 H, Eos % (Auto) 1.7, Baso % (Auto) 0.8, Absolute Neuts (auto) 5.2, Absolute Lymphs (auto) 1.34, Nucleated RBC % 0 02/14/22 06:12: Sodium 137, Potassium 3.7, Chloride 102, Carbon Dioxide 30.0, An ion Gap 5, BUN 32 H, Creatinine 1.11, Estim Creat Clear Calc 53.06, Est GFR ( MDRD) Af Amer 82, Est GFR (MDRD) Non-Af 68, BUN/Creatinine Ratio 28.8 H, Glucose 113 H, Calcium 8.8, Total Bilirubin 1.40 H, AST 22, ALT 24, Alkaline Phosphatase 52, Total Protein 6.9, Albumin 3.5, Globulin 3.4, Albumin/Globulin Ratio 1.0 Cardiology Labs/Tests 02/14/22 06:12: WBC 7.5, RBC 4.76, Hgb 14.3, Hct 42.4, MCV 89.1, MCH 30.0, MCHC 33.7, Plt Count 232, MPV 8.6, Immature Gran % (Auto) 0.400, Neut % (Auto) 68.5, Lymph % (Auto) 17.8 L, [place] % (Auto) 10.8 H, Eos % (Auto) 1.7, Baso % (Auto) 0.8, Absolute Neuts (auto) 5.2, Nucleated RBC % 0 02/14/22 06:12: Sodium 137, Potassium 3.7, Chloride 102, Carbon Dioxide 30.0, Anion Gap 5, BUN 32 H, Creatinine 1.11, Est GFR (MDRD) Af Amer 82, Est GFR (MDRD) Non-Af 68, BUN/Creatinine Ratio 28.8 H, Glucose 113 H, Calcium 8.8, Total Bilirubin 1.40 H Rhythm: EKG: ECHO: Stress Test: Cardiac Cath: PCI: CT Surgery: Holter monitor: EPS: PPM: CXR: Chest CT Scan: Radiography Diagnostic Testing: Radiology Impression Echocardiogram 02/12/22 15:34 Interpretation Summary The estimated ejection fraction is 15-20 %. Severe LV systolic Dysfunction Moderate Eccentric MR No prior echo to compare Ordering Physician: Lizette Leal Performed By: Savannah Ferro RCS
[2022-02-14] MEDS: MELATONIN 3 MG TABLET PO (21:44)
[2022-02-15] VITALS (13 sets, daily range): BP systolic 96–107; BP diastolic 69–75; PULSE 72–98; RESP 15–18; TEMP 36.5–36.8; O2SAT 97–100
[2022-02-15] MEDS: Heparin Injection (Vial) 5,000 UNIT/ML VIAL 5000 UNIT SC ×3 (05:53→21:54)
[2022-02-15 06:45] LABS: Absolute Lymphocyte Count 1.37 X10^3/uL (0.83-4.51); Absolute Neutrophil Count 5.7 X10^3/uL (2.0-7.7); Basophil# 0.06 X10^3/uL; Basophil% 0.7 % (0-1); Eosinophil# 0.14 X10^3/uL; Eosinophils% 1.7 % (0-5); Hematocrit 42.3 % (40-54); Hemoglobin 14.2 g/dL (13.0-16.5); Lymphocyte # 1.37 X10^3/ul (0.83-4.51); Lymphocyte % 16.5 % (19-41); Mean Corp Hgb Conc 33.6 g/dL (32-36); Mean Corpuscular Hgb 30.1 pg (27.0-32.0); Mean Corpuscular Volume 89.6 fL (80-94); Mean Platelet Vol. 8.6 fl (6.2-12.0); NRBC Flagged by Analyzer 0 % (0-5); Neutrophil # 5.71 X10^3/uL (2.7-7.7); Neutrophil % 68.6 % (47-70); Platelet Count 243 K/mm3 (150-450); RBC Distribution Width CV 13.2 % (11.6-14.6); Red Blood Count 4.72 M/mm3 (4.6-6.2); White Blood Count 8.3 K/mm3 (4.4-11.0)
[2022-02-15 07:10] LABS: AST(SGOT) 25 U/L (15-37); Alanine Aminotransfer ALT/SGPT 28 U/L (16-61); Albumin, Serum 3.7 g/dL (3.2-5.0); Alkaline Phosphatase 57 U/L (45-117); Anion Gap 6 (5-15); BUN 27 mg/dL (7-18); Calcium,Total 9.3 mg/dL (8.5-10.1); Chloride 101 mmol/L (98-107); Creatinine, Serum 1.08 mg/dL (0.70-1.30); EST Glomerular Filtration Rate 70 mL/min (>60); Est Glom Filt Rate - Afr Amer 85 mL/min (>60); Estimated Creatinine Clearance 54.54 ml/min; Globulin 3.6 g/dL (2.2-4.2); Glucose 116 mg/dL (74-106); Potassium 3.6 mmol/L (3.5-5.1); Protein, Total 7.3 g/dL (6.4-8.2); Sodium Level 138 mmol/L (136-145)
--- NOTE | 2022-02-15 08:10 | PN.HOSP_ITS ---
Subjective Subjective Follow-up on acute heart failure with reduced EF: Patient was seen and examined today.?Denies chest pain, dizziness, palpitations. Objective Data Objective Data Vital Signs: Vital Signs Temp Pulse Resp BP Pulse Ox O2 Del Method O2 Flow Rate 98.3 F 83 18 96/72 100 Room Air 0 02/15/22 04:32 02/15/22 07:00 02/15/22 04:32 02/15/22 04:32 02/15/22 04:32 02/15/22 04:32 02/13/22 10:21 Oxygen Flow Rate (L/min) [ 0 AMBULATING on Room Air] Oxygen Flow Rate (L/min) [At 0 REST on Room Air] Oxygen Delivery Method Room Air Weight: 71.6 kg Body Mass Index (BMI) 24.7 Intake & Output: Intake and Output for Last 24 Hours 02/13/22 02/14/22 02/15/22 23:59 23:59 23:59 Intake Total 1200 / 1320 120 / 120 Balance 1200 / 1320 120 / 120 Lab / Micro Data Result Diagrams: 02/15/22 06:30 02/15/22 06:30 Labs: Laboratory Results - last 24 hr 02/15/22 06:30: WBC 8.3, RBC 4.72, Hgb 14.2, Hct 42.3, MCV 89.6, MCH 30.1, MCHC 33.6, RDW Std Deviation 43.0, RDW Coeff of Jorge 13.2, Plt Count 243, MPV 8.6, Immature Gran % (Auto) 0.500, Neut % (Auto) 68.6, Lymph % (Auto) 16.5 L, [place] % (Auto) 12.0 H, Eos % (Auto) 1.7, Baso % (Auto) 0.7, Absolute Neuts (auto) 5.7, Absolute Lymphs (auto) 1.37, Nucleated RBC % 0 02/15/22 06:30: Sodium 138, Potassium 3.6, Chloride 101, Carbon Dioxide 31.0, Anion Gap 6, BUN 27 H, Creatinine 1.08, Estim Creat Clear Calc 54.54, Est GFR (MDRD) Af Amer 85, Est GFR (MDRD) Non-Af 70, BUN/Creatinine Ratio 25.0 H, Glucose 116 H, Calcium 9.3, Total Bilirubin 1.20 H, AST 25, ALT 28, Alkaline Phosphatase 57, Total Protein 7.3, Albumin 3.7, Globulin 3.6, Albumin/Globulin Ratio 1.0 Physical Exam Narrative Physical exam: General: Alert, Oriented x3, Cooperative, no apparent distress HEENT: Atraumatic Oral: Moist Mucosa Neck: Supple Lungs: Clear to auscultation Cardiovascular: HS I+II, regular, no murmurs Abdomen: Bowel Sounds Present, Soft, Non Tender Extremities: No edema Skin: No rashes, No breakdown Neurological: Grossly intact Psych/Mental Status: Appropriate Assessment & Plan Assessment/Plan (1) CHF (congestive heart failure): (2) Pleural effusion: (3) Acute dyspnea: PLAN: Plan 1. Acute heart failure with reduced EF, EF 15-20% Admitting EKG shows normal sinus rhythm 2D-ECHO showed EF 15-20%, moderate +2 mitral valve/aortic insufficiency Cardiology consulted, going for cardiac cath in am Continue on oral Lasix 2. History of prostate CA, in remission 3. DVT prophylaxis?heparin subcu Charges/Coding Visit Charges Inpatient E&M: 14618 Subs Hosp L2
[2022-02-15] MEDS: Furosemide 20 MG Tablet PO ×2 (09:29→17:10)
--- NOTE | 2022-02-15 15:11 | PN.CARD_ITS ---
Subjective Subjective Seen and evaluated today at bedside, and son at bedside at time of evaluation No symptoms reported sitting comfortably in a chair. Objective Data Vital Signs: Vital Signs Temp Pulse Resp BP Pulse Ox O2 Del Method O2 Flow Rate 97.8 F 86 16 98/69 97 Room Air 0 02/15/22 14:58 02/15/22 14:58 02/15/22 14:58 02/15/22 14:58 02/15/22 14:58 02/15/22 14:58 02/13/22 10:21 Oxygen Flow Rate (L/min) [ 0 AMBULATING on Room Air] Oxygen Flow Rate (L/min) [At 0 REST on Room Air] Oxygen Delivery Method Room Air Weight: 157 lb 13.616 oz Body Mass Index (BMI) 24.7 Intake & Output: Intake and Output for Last 24 Hours 02/13/22 02/14/22 02/15/22 23:59 23:59 23:59 Intake Total 1200 / 1320 120 / 120 Balance 1200 / 1320 120 / 120 Lab / Micro Data Result Diagrams: 02/15/22 06:30 02/15/22 06:30 Labs: Laboratory Results - last 24 hr 02/15/22 06:30: WBC 8.3, RBC 4.72, Hgb 14.2, Hct 42.3, MCV 89.6, MCH 30.1, MCHC 33.6, RDW Std Deviation 43.0, RDW Coeff of Jorge 13.2, Plt Count 243, MPV 8.6, Immature Gran % (Auto) 0.500, Neut % (Auto) 68.6, Lymph % (Auto) 16.5 L, [place] % (Auto) 12.0 H, Eos % (Auto) 1.7, Baso % (Auto) 0.7, Absolute Neuts (auto) 5.7, Absolute Lymphs (auto) 1.37, Nucleated RBC % 0 02/15/22 06:30: Sodium 138, Potassium 3.6, Chloride 101, Carbon Dioxide 31.0, Anion Gap 6, BUN 27 H, Creatinine 1.08, Estim Creat Clear Calc 54.54, Est GFR (MDRD) Af Amer 85, Est GFR (MDRD) Non-Af 70, BUN/Creatinine Ratio 25.0 H, Glucose 116 H, Calcium 9.3, Total Bilirubin 1.20 H, AST 25, ALT 28, Alkaline Phosphatase 57, Total Protein 7.3, Albumin 3.7, Globulin 3.6, Albumin/Globulin Ratio 1.0 Cardiology Labs/Tests 02/15/22 06:30: WBC 8.3, RBC 4.72, Hgb 14.2, Hct 42.3, MCV 89.6, MCH 30.1, MCHC 33.6, Plt Count 243, MPV 8.6, Immature Gran % (Auto) 0.500, Neut % (Auto) 68.6, Lymph % (Auto) 16.5 L, [place] % (Auto) 12.0 H, Eos % (Auto) 1.7, Baso % (Auto) 0.7, Absolute Neuts (auto) 5.7, Nucleated RBC % 0 02/15/22 06:30: Sodium 138, Potassium 3.6, Chloride 101, Carbon Dioxide 31.0, Anion Gap 6, BUN 27 H, Creatinine 1.08, Est GFR (MDRD) Af Amer 85, Est GFR (M DRD) Non-Af 70, BUN/Creatinine Ratio 25.0 H, Glucose 116 H, Calcium 9.3, Total Bilirubin 1.20 H Rhythm: EKG: ECHO: Stress Test: Cardiac Cath: PCI: CT Surgery: Holter monitor: EPS: PPM: CXR: Chest CT Scan: Physical Exam Narrative 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 Assessment & Plan Assessment/Plan (1) Acute dyspnea: (2) Pleural effusion: (3) CHF (congestive heart failure): (4) Acute on chronic clinical systolic heart failure: PLAN: 76-year-old patient, patient has symptoms of progressive shortness of breath with chest discomfort Has been over the last 4 years which progressively got worse recently. Patient had abnormal echocardiogram with severe LV dysfunction ejection fraction 15-20% Moderate mitral valve regurgitation. Patient has a remote history of prostate cancer in remission. Cardiac care plan recommendations; 1. I reviewed and discussed the current medication continue current treatment 2. Patient will be evaluated further with cardiac catheterization. To assess for ischemic cardiomyopathy And also evaluation of the mitral and aortic valve
[2022-02-15] MEDS: 0.9% Saline Lock 10 ML Syringe IV (21:54)
[2022-02-15] MEDS: MELATONIN 3 MG TABLET PO (21:54)
[2022-02-16] VITALS (19 sets, daily range): BP systolic 91–115; BP diastolic 60–98; PULSE 61–101; RESP 13–18; TEMP 36.6–37.1; O2SAT 96–99
--- NOTE | 2022-02-16 08:17 | PCM.PN.HOSP ---
Subjective Subjective Patient is a 76-year-old gentleman who presented with progressive shortness of breath with associated cough over period of months. Echo obtained on admission demonstrated EF of 15 to 20% 02/16/2022 patient seen still complains of persistent cough and shortness of breath. Scheduled to undergo left heart catheterization Objective Data Objective Data Vital Signs: Vital Signs Temp Pulse Resp BP Pulse Ox O2 Del Method O2 Flow Rate 98.5 F 101 H 13 110/77 99 Room Air 0 02/16/22 02:45 02/16/22 06:59 02/16/22 02:45 02/16/22 02:45 02/16/22 02:45 02/16/22 02:45 02/13/22 10:21 Oxygen Flow Rate (L/min) [ 0 AMBULATING on Room Air] Oxygen Flow Rate (L/min) [At 0 REST on Room Air] Oxygen Delivery Method Room Air Weight: 71.7 kg Body Mass Index (BMI) 24.7 Intake & Output: Intake and Output for Last 24 Hours 02/14/22 02/15/22 02/16/22 23:59 23:59 23:59 Intake Total 120 / 120 Balance 120 / 120 Lab / Micro Data Result Diagrams: 02/15/22 06:30 02/15/22 06:30 Physical Exam Narrative GENERAL: cooperative HEENT: Atraumatic; EYES; Anicteric, Normal Conjunctiva NECK; supple, normal thyroid, RESPIRATORY: Diminished to auscultation CARDIOVASCULAR: Regular S1 S2, GI: soft, normoactive bowel sounds, : No Renal angle tenderness; EXTREMITIES: no edema, no clubbing, MUSCULOSKELETAL: no muscle wasting NEURO: Awake; no lateralizing signs. SKIN: No Rash PSYCH; Flat affect Assessment & Plan Assessment/Plan (1) CHF (congestive heart failure): (2) Pleural effusion: (3) Acute dyspnea: PLAN: Plan Patient is a 76-year-old gentleman who presented with progressive shortness of breath with associated cough over period of months. Echo obtained on admission demonstrated EF of 15 to 20% 1. Acute congestive heart failure with reduced ejection fraction ? 2D-ECHO showed EF 15-20%, moderate +2 mitral valve/aortic insufficiency. Patient has been managed with diuretics consult placed to cardiology plans for patient to undergo left heart catheterization on 02/16/2022 2. 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 DVT prophylaxis ? On SC heparin Charges/Coding Visit Charges Inpatient E&M: 34891 Subs Hosp L2
[2022-02-16] MEDS: Furosemide 20 MG Tablet PO ×2 (08:49→17:14)
[2022-02-16 10:44] LABS: Absolute Lymphocyte Count 1.16 X10^3/uL (0.83-4.51); Absolute Neutrophil Count 4.9 X10^3/uL (2.0-7.7); Basophil# 0.06 X10^3/uL; Basophil% 0.9 % (0-1); Eosinophil# 0.08 X10^3/uL; Eosinophils% 1.2 % (0-5); Hematocrit 41.2 % (40-54); Hemoglobin 14.1 g/dL (13.0-16.5); Lymphocyte # 1.16 X10^3/ul (0.83-4.51); Lymphocyte % 16.9 % (19-41); Mean Corp Hgb Conc 34.2 g/dL (32-36); Mean Corpuscular Hgb 30.2 pg (27.0-32.0); Mean Corpuscular Volume 88.2 fL (80-94); Mean Platelet Vol. 8.6 fl (6.2-12.0); Monocyte# 0.67 X10^3/uL; Monocyte% 9.8 % (0-10); NRBC Flagged by Analyzer 0 % (0-5); Neutrophil # 4.86 X10^3/uL (2.7-7.7); Neutrophil % 70.8 % (47-70); Platelet Count 259 K/mm3 (150-450); RBC Distribution Width CV 13.2 % (11.6-14.6); RBC Distribution Width SD 42.6 fl (35.1-43.9); Red Blood Count 4.67 M/mm3 (4.6-6.2); White Blood Count 6.9 K/mm3 (4.4-11.0)
[2022-02-16 11:09] LABS: Anion Gap 8 (5-15); BUN 23 mg/dL (7-18); BUN/Creat Ratio 22.5 RATIO (10-20); Calcium,Total 9.4 mg/dL (8.5-10.1); Chloride 99 mmol/L (98-107); Creatinine, Serum 1.02 mg/dL (0.70-1.30); EST Glomerular Filtration Rate 75 mL/min (>60); Est Glom Filt Rate - Afr Amer 91 mL/min (>60); Estimated Creatinine Clearance 57.75 ml/min; Glucose 119 mg/dL (74-106); Magnesium 2.3 mg/dL (1.6-2.6); Sodium Level 138 mmol/L (136-145)
--- NOTE | 2022-02-16 11:55 | CL.D_ITS ---
Patient Name: VIOLA YEPEZ Study Date: 02/16/2022 Performing: Shanna Ferrera MD Ht: 68 inches 173 cm : 1945 Wt: 158.9 lbs 72 kg Age: 76 Gender: male BSA: 1.85 PROCEDURE(S) PERFORMED [id number])[facility] CLINICAL PROFILE AND INDICATIONS Indications: Cardiomyopathy Heart Failure: NYHA Class: 3 Stress/Imaging Stress/Image Study Performed: No CAD Presentations: Other: chf CONCLUSIONS Multivessel CAD RECOMMENDATIONS CT surgery consult to discuss revascularization options DESCRIPTION OF PROCEDURE The patient arrived to the procedure lab. The risks and benefits of the procedure as well as a full d escription of our services here and current unavailability of surgical backup were fully explained to the patient and/or their significant other prior to the catheterization. The Timeout was completed, verifying the correct patient and procedure. The patient's procedural site was prepped and draped in the usual fashion. Local anesthetic was given subcutaneously to right radial region with Lidocaine 2% . Using a modified Seldinger technique, arterial access was obtained via the right radial artery, a 6 Fr sheath was inserted. Left Coronary Artery selective angiography was performed in multiple views u sing a 5 Fr. JL3.5 catheter. Right Coronary Artery selective angiography was then performed in multip le views using a 5 Fr. JR 4 catheter.The arterial sheath was pulled and a TR Band was applied for hem ostasis CORONARY ANGIOGRAPHY DOMINANCE: Co- Dominant LEFT HEART ASSESSMENT Left Ventricular Ejection Fraction: Not assessed by LV gram LEFT MAIN: Mild diffuse disease LEFT ANTERIOR DESCENDING ARTERY: PROX LAD: Mild to moderate diffuse disease MID LAD: 95-99 % Stenosis. There is collateral filling of a medium sized diagonal branch and the dist al and mid LAD from the LCx. CIRCUMFLEX ARTERY: DISTAL CIRC: 90 % Stenosis OM 1: Proximal - 30-40 % Stenosis OM 2: Proximal - 70-80 % Stenosis RIGHT CORONARY ARTERY: PROX RCA: 90 % Stenosis COMPLICATIONS No Complications PROCEDURE MEDICATIONS Versed 1 mg IV Fentanyl 50 mcg IV Oxygen: 2 L/min via nasal cannula Heparin given IA 02/16/2022 10:59:01 Verapamil 2.5mg, Ntg 100mcgs, 3000 units of Heparin given IA 02/16/2022 10:59:01 SUMMARY OF HEMODYNAMIC DATA Time AIR REST ECG 10:44:33 AO 81/53 (62) SA 11:03:53 Signed By Shanna Ferrera MD On 02/16/2022 11:54:37 AM Shanna Ferrera MD
[2022-02-16] MEDS: 0.9% Normal Saline 1,000 ML 60 ML IV (12:04)
--- NOTE | 2022-02-16 13:36 | EKG12_ITS ---
Test Reason : cp Blood Pressure : / mmHG Vent. Rate : 086 BPM Atrial Rate : 077 BPM P-R Int : 200 ms QRS Dur : 138 ms QT Int : 402 ms P-R-T Axes : 000 200 076 degrees QTc Int : 481 ms Occasional PVC's Non-specific intra-ventricular conduction block Cannot rule out Anterior infarct , age undetermined Consider Limb Lead Misplacement Consider Repeat ECG Abnormal ECG Confirmed by MICAH CHAPPELL, RAJESH ([id number]), telegraph editor YOLANDA YANES ([id number]) on 02/18/2022 10:49:42 AM Referred By: Mel Confirmed By:RAJESH OBRIEN MD
[2022-02-16] MEDS: Heparin Injection (Vial) 5,000 UNIT/ML VIAL 5000 UNIT SC ×2 (14:04→21:40)
--- NOTE | 2022-02-16 15:56 | DS.PCM_ITS ---
Providers Date of Admission: 02/12/22 Date of Discharge: 02/17/22 Consultations 02/13/22 17:14 Consult: Cardiology Routine Consulting Provider: Heather Cloud Reason for Consult: Reduced EF EMERGENT Consult: No MD Notified: Yes Date Notified: 02/13/22 Time Notified: 17:14 Method of Notification: Verbal Reason For Visit: ACUTE CHF Diagnosis Discharge Diagnosis (1) CHF (congestive heart failure): Status: Acute Code(s): I50.9 - Heart failure, unspecified (2) Pleural effusion: Status: Acute Code(s): J90 - Pleural effusion, not elsewhere classified (3) Acute dyspnea: Status: Acute Code(s): R06.00 - Dyspnea, unspecified Plan Patient is a 76-year-old gentleman who presented with progressive shortness of breath with associated cough over period of months. Echo obtained on admission demonstrated EF of 15 to 20% 1. Acute congestive heart failure with reduced ejection fraction ? 2D-ECHO showed EF 15-20%, moderate +2 mitral valve/aortic insufficiency. Patient has been managed with diuretics consult placed to cardiology plans for patient to undergo left heart catheterization on 02/16/2022 2. 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 DVT prophylaxis ? On SC heparin Medications at Discharge Home Medications furosemide 20 mg tablet (Lasix) 20 mg PO BID 30 days #60 tabs 02/13/22 lisinopril 5 mg tablet 5 mg PO DAILY #1 TAB 02/16/22 Hospital Course Summary of Care Provided Minutes Spent on Discharge: 40 Hospital Course: Patient is a 76-year-old gentleman who presented with progressive shortness of breath with associated cough over period of months.? Echo obtained on admission demonstrated EF of 15 to 20% 1.? Acute congestive heart failure with reduced ejection fraction ? 2D-ECHO showed EF 15-20%, moderate +2 mitral valve/aortic insufficiency.? Patient has been managed with diuretics consult placed to cardiology plans for patient to undergo left heart catheterization on 02/16/2022. Patient underwent left heart catheterization by results as below CORONARY ANGIOGRAPHY DOMINANCE:? Co- Dominant LEFT HEART ASSESSMENT Left Ventricular Ejection Fraction: Not assessed by LV gram LEFT MAIN: Mild diffuse disease LEFT ANTERIOR DESCENDING ARTERY: PROX LAD: Mild to moderate diffuse disease MID LAD: 95-99 % Stenosis. There is collateral filling of a medium sized diagonal branch and the distal and mid LAD from the LCx. CIRCUMFLEX ARTERY: DISTAL CIRC: 90 % Stenosis OM 1: Proximal - 30-40 % Stenosis OM 2: Proximal - 70-80 % Stenosis RIGHT CORONARY ARTERY: PROX RCA: 90 % Stenosis Based on above cardiology arrange for patient to be transferred to a tertiary care center at [facility] in [place] 2.? 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 DVT prophylaxis ? On SC heparin Physical Exam Narrative GENERAL: cooperative HEENT: Atraumatic; EYES; Anicteric, Normal Conjunctiva NECK; supple, normal thyroid, RESPIRATORY: Diminished to auscultation CARDIOVASCULAR: Regular S1 S2, GI: soft, normoactive bowel sounds, : No Renal angle tenderness; EXTREMITIES: no edema, no clubbing, MUSCULOSKELETAL: no muscle wasting NEURO: Awake; no lateralizing signs. SKIN: No Rash PSYCH; Flat affect Weight / BMI Weight Weight: 71.7 kg Body Mass Index (BMI) 24.7 ABG / Lab / Microbiology Data Result Diagrams: 02/17/22 06:55 02/17/22 06:55 Laboratory: Laboratory Results - last 24 hr 02/16/22 10:20: WBC 6.9, RBC 4.67, Hgb 14.1, Hct 41.2, MCV 88.2, MCH 30.2, MCHC 34.2, RDW Std Deviation 42.6, RDW Coeff of Jorge 13.2, Plt Count 259, MPV 8.6, Immature Gran % (Auto) 0.400, Neut % (Auto) 70.8 H, Lymph % (Auto) 16.9 L, [place] % (Auto) 9.8, Eos % (Auto) 1.2, Baso % (Auto) 0.9, Absolute Neuts (auto) 4.9, Absolute Lymphs (auto) 1.16, Nucleated RBC % 0 02/16/22 10:20: Sodium 138, Potassium 4.0, Chloride 99, Carbon Dioxide 31.0, Anion Gap 8, BUN 23 H, Creatinine 1.02, Estim Creat Clear Calc 57.75, Est GFR (MDRD) Af Amer 91, Est GFR (MDRD) Non-Af 75, BUN/Creatinine Ratio 22.5 H, Glucose 119 H, Calcium 9.4, Magnesium 2.3 D/C Instructions Discharge Diet: Low fat / Low cholesterol and 2000 mg Sodium Diet Meaningful Use Info Meaningful Use Diagnoses (Choose all that apply): CHF CHF CLEO/ARB ordered at discharge?: Yes Documented LVEF (%): 20 Discharge Plan Admission Admit Date/Time: 02/12/22 13:22 Primary Reason for Your Visit: Acute CHF Attending Provider: Devon Dye Consulting Providers: Heather Cloud ; Lizette Leal Instructions Additional Instructions / Restrictions: Continue to take all your medications as prescribed. Continue on a low-fat low-salt diet. Weigh yourself every day. Let your doctor know when you gain more than 4 pounds of weight. Follow-up with your primary care doctor within 1 week to get blood work done to check on your kidney function Follow-up with the director of in service education in 2-4 weeks. Discharge Orders/Prescriptions Prescriptions: New furosemide [Lasix] 20 mg tablet 20 mg PO BID 30 Days Qty: 60 0RF lisinopril 5 mg tablet 5 mg PO DAILY Qty: 1 0RF Referrals / Follow Up: Carlos Costello MD [STAFF PHYSICIAN] - Within 1 Month [facility],Out of [NON-STAFF] - In 1 Week Disposition Disposition (needs filled in before D/C Order can be placed): Acute Care Hospital Charges/Coding Visit Charges Inpatient E&M: 93373 Disch Hosp Hospital Course Consultations Consultations: Consultations 02/13/22 17:14 Consult: Cardiology Routine Consulting Provider: Heather Cloud Reason for Consult: Reduced EF EMERGENT Consult: No Notified: Yes Date Notified: 02/13/22 Time Notified: 17:14 Method of Notification: Verbal Hospital Course and Treatment Consultations 02/13/22 17:14 Consult: Cardiology Routine Consulting Provider: Heather Cloud Reason for Consult: Reduced EF EMERGENT Consult: Juanita CHAPPELL Notified: Yes Date Notified: 02/13/22 Time Notified: 17:14 Method of Notification: Verbal Summary of Care Provided: The patient is a 76 year old M []
[2022-02-16] MEDS: Acetaminophen 325 MG Tablet 650 MG PO (16:34)
[2022-02-16] MEDS: MELATONIN 3 MG TABLET PO (21:43)
[2022-02-17] VITALS (8 sets, daily range): BP systolic 93–108; BP diastolic 67–83; PULSE 61–88; RESP 16–18; TEMP 36.6–36.9; O2SAT 97–99
[2022-02-17] MEDS: 0.9% Normal Saline 1,000 ML 60 ML IV (04:20)
[2022-02-17] MEDS: Heparin Injection (Vial) 5,000 UNIT/ML VIAL 5000 UNIT SC ×3 (05:43→21:39)
[2022-02-17 07:19] LABS: Absolute Lymphocyte Count 1.25 X10^3/uL (0.83-4.51); Absolute Neutrophil Count 4.9 X10^3/uL (2.0-7.7); Basophil# 0.06 X10^3/uL; Basophil% 0.8 % (0-1); Eosinophil# 0.12 X10^3/uL; Eosinophils% 1.7 % (0-5); Hematocrit 40.2 % (40-54); Hemoglobin 13.6 g/dL (13.0-16.5); Lymphocyte # 1.25 X10^3/ul (0.83-4.51); Lymphocyte % 17.7 % (19-41); Mean Corp Hgb Conc 33.8 g/dL (32-36); Mean Corpuscular Volume 88.7 fL (80-94); Mean Platelet Vol. 8.8 fl (6.2-12.0); Monocyte# 0.73 X10^3/uL; Monocyte% 10.3 % (0-10); NRBC Flagged by Analyzer 0 % (0-5); Neutrophil # 4.89 X10^3/uL (2.7-7.7); Neutrophil % 69.1 % (47-70); Platelet Count 234 K/mm3 (150-450); RBC Distribution Width CV 13.2 % (11.6-14.6); RBC Distribution Width SD 43.2 fl (35.1-43.9); Red Blood Count 4.53 M/mm3 (4.6-6.2); White Blood Count 7.1 K/mm3 (4.4-11.0)
[2022-02-17 07:41] LABS: Anion Gap 8 (5-15); BUN 24 mg/dL (7-18); BUN/Creat Ratio 23.8 RATIO (10-20); Calcium,Total 9.1 mg/dL (8.5-10.1); Chloride 103 mmol/L (98-107); Creatinine, Serum 1.01 mg/dL (0.70-1.30); EST Glomerular Filtration Rate 76 mL/min (>60); Est Glom Filt Rate - Afr Amer 92 mL/min (>60); Estimated Creatinine Clearance 58.32 ml/min; Glucose 115 mg/dL (74-106); Potassium 3.8 mmol/L (3.5-5.1); Sodium Level 139 mmol/L (136-145)
[2022-02-17] MEDS: Furosemide 20 MG Tablet PO ×2 (08:51→17:12)
--- NOTE | 2022-02-17 10:01 | PCM.PN.HOSP ---
Objective Data Objective Data Vital Signs: Vital Signs Temp Pulse Resp BP Pulse Ox O2 Del Method O2 Flow Rate 98.4 F 77 18 98/78 97 Room Air 0 02/17/22 09:30 02/17/22 09:30 02/17/22 09:30 02/17/22 09:30 02/17/22 09:30 02/17/22 09:30 02/13/22 10:21 Oxygen Flow Rate (L/min) [ 0 AMBULATING on Room Air] Oxygen Flow Rate (L/min) [At 0 REST on Room Air] Oxygen Delivery Method Room Air Weight: 71.5 kg Body Mass Index (BMI) 24.7 Intake & Output: Intake and Output for Last 24 Hours 02/15/22 02/16/22 02/17/22 23:59 23:59 23:59 Intake Total 625 / 625 1281 / 1281 Output Total 200 / 200 500 / 500 Balance 425 / 425 781 / 781 Lab / Micro Data Result Diagrams: 02/17/22 06:55 02/17/22 06:55 Labs: Laboratory Results - last 24 hr 02/16/22 10:20: WBC 6.9, RBC 4.67, Hgb 14.1, Hct 41.2, MCV 88.2, MCH 30.2, MCHC 34.2, RDW Std Deviation 42.6, RDW Coeff of Jorge 13.2, Plt Count 259, MPV 8.6, Immature Gran % (Auto) 0.400, Neut % (Auto) 70.8 H, Lymph % (Auto) 16.9 L, [place] % (Auto) 9.8, Eos % (Auto) 1.2, Baso % (Auto) 0.9, Absolute Neuts (auto) 4.9, Absolute Lymphs (auto) 1.16, Nucleated RBC % 0 02/16/22 10:20: Sodium 138, Potassium 4.0, Chloride 99, Carbon Dioxide 31.0, Anion Gap 8, BUN 23 H, Creatinine 1.02, Estim Creat Clear Calc 57.75, Est GFR (MDRD) Af Amer 91, Est GFR (MDRD) Non-Af 75, BUN/Creatinine Ratio 22.5 H, Glucose 119 H, Calcium 9.4, Magnesium 2.3 02/17/22 06:55: WBC 7.1, RBC 4.53 L, Hgb 13.6, Hct 40.2, MCV 88.7, MCH 30.0, MCHC 33.8, RDW Std Deviation 43.2, RDW Coeff of Jorge 13.2, Plt Count 234, MPV 8.8, Immature Gran % (Auto) 0.400, Neut % (Auto) 69.1, Lymph % (Auto) 17.7 L, [place] % (Auto) 10.3 H, Eos % (Auto) 1.7, Baso % (Auto) 0.8, Absolute Neuts (auto) 4.9, Absolute Lymphs (auto) 1.25, Nucleated RBC % 0 02/17/22 06:55: Sodium 139, Potassium 3.8, Chloride 103, Carbon Dioxide 28.0, Anion Gap 8, BUN 24 H, Creatinine 1.01, Estim Creat Clear Calc 58.32, Est GFR (MDRD) Af Amer 92, Est GFR (MDRD) Non-Af 76, BUN/Creatinine Ratio 23.8 H, Glucose 115 H, Calcium 9.1 Physical Exam Narrative GENERAL: cooperative HEENT: Atraumatic; EYES; Anicteric, Normal Conjunctiva NECK; supple, normal thyroid, RESPIRATORY: Diminished to auscultation CARDIOVASCULAR: Regular S1 S2, GI: soft, normoactive bowel sounds, : No Renal angle tenderness; EXTREMITIES: no edema, no clubbing, MUSCULOSKELETAL: no muscle wasting NEURO: Awake; no lateralizing signs. SKIN: No Rash PSYCH; Flat affect Assessment & Plan Assessment/Plan (1) CHF (congestive heart failure): (2) Pleural effusion: (3) Acute dyspnea: PLAN: Plan Patient is a 76-year-old gentleman who presented with progressive shortness of breath with associated cough over period of months. Echo obtained on admission demonstrated EF of 15 to 20% 1. Acute congestive heart failure with reduced ejection fraction ? 2D-ECHO showed EF 15-20%, moderate +2 mitral valve/aortic insufficiency. Patient has been managed with diuretics consult placed to cardiology plans for patient to undergo left heart catheterization on 02/16/2022 -02/17/2022; left heart catheterization the day prior did show CORONARY ANGIOGRAPHY DOMINANCE:? Co- Dominant LEFT HEART ASSESSMENT Left Ventricular Ejection Fraction: Not assessed by LV gram LEFT MAIN: Mild diffuse disease LEFT ANTERIOR DESCENDING ARTERY: PROX LAD: Mild to moderate diffuse disease MID LAD: 95-99 % Stenosis. There is collateral filling of a medium sized diagonal branch and the distal and mid LAD from the LCx. CIRCUMFLEX ARTERY: DISTAL CIRC: 90 % Stenosis OM 1: Proximal - 30-40 % Stenosis OM 2: Proximal - 70-80 % Stenosis RIGHT CORONARY ARTERY: PROX RCA: 90 % Stenosis Based on above cardiology arrangements were made for patient to be transferred to [facility] in [place]. Patient has been accepted for transfer currently awaiting for bed 2. 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 DVT prophylaxis ? On SC heparin Charges/Coding Visit Charges Inpatient E&M: 92266 Subs Hosp L2
--- NOTE | 2022-02-17 15:26 | CHAPLAIN ---
Type of Pastoral Visit _x__ Initial Visit ___ Follow-up Visit ___ On-call Visit ___ General Patient Visit ___ Spiritual Assessment ___ Family Conference ___ Bereavement ___ Rapid Response ___ Code Blue ___ Other (describe below) Pastoral Care Referral From _x__ Patient _x__ Family ___ Nurse ___ Physician ___ Resident Services Coordinator ___ Pediatric Dental Hygienist _x__ Other (describe below) Sacrament/Intervention _x__ Active listening ___ Anointing ___ Christian ___ Bereavement ___ Communion _x__ Leslie exploration ___ _x__ Life review _x__ Prayer ___ Reconciliation ___ Sacrament of Sick _x__ Supportive presence ___ Wedding ___ Other (describe below) Pastoral Comments Juni Yin requested support for this family who agreed to visit by this byproducts operator; patient is waiting transfer to [facility]; family members are in room; pt is alert and explains situation; spouse is more verbal and gives more details; family is leslie oriented and welcomes presence and prayer for support; pt and family exhibit trust and patience for situation.
[2022-02-17] MEDS: 0.9% Saline Lock 10 ML Syringe IV (20:30)
== END 2022-02-17 23:05 | disposition short-term general hospital (02) | DRG 287 ==
LOC: ED 13:20 → PCU 13:33
PROVIDERS: Admitting Provider Internal Medicine; Emergency Provider Emergency Medicine; Visit Provider Internal Medicine
DX: I50.23 Acute on chronic systolic (congestive) heart failure (principal); I34.0 Nonrheumatic mitral (valve) insufficiency; I35.1 Nonrheumatic aortic (valve) insufficiency; Z85.46 Personal history of malignant neoplasm of prostate
CPT/HCPCS: 36415; 71045; 80048; 80053; 83735; 83880; 84443; 84484; 85025; 85379; 93005; 93306; 93454; 97802; 99152; 99153; 99285; J7030; A4216; C1769; C1894; J1940; Q9967

== ENCOUNTER → 2022-05-14 | Outpatient (CLI) | payer SELFPAY ==
--- NOTE | 2022-05-14 08:42 | ECHOLC_ITS ---
Reason For Study: HFrEF Procedure This was a limited 2D transthoracic echocardiogram. The study was technically limited. Contrast injection was performed. Exam performed in department. Left Ventricle Severely dilated left ventricle. Apical false tendon noted. Severe segmental systolic dysfunction (see wall motion). The estimated ejection fraction is 25 %. Unable to assess diastolic dysfunction. Anterio-Basal: Hypokinetic. Infero-Basal: Akinetic. Basal inferoseptal: Hypokinetic. Mid-Anterior : Severely Hypokinetic. Mid-Lateral : Hypokinetic. Mid-Posterior: Akinetic. Mid-Inferior: Severely Hypokinetic. Mid-inferoseptal : Hypokinetic. Mid-anteroseptal : Hypokinetic. Anterior Unity : Akinetic. Inferior Unity : Severely Hypokinetic. Lateral Unity : Akinetic. Septal Unity : Akinetic. Right Ventricle Normal right ventricle. Normal systolic function. Atria The left atrium is mildly enlarged. Normal right atrium. No doppler evidence for ASD. Mitral Valve There is mild mitral annular calcification. Moderate diffuse mitral valve thickening. Mild focal mitral valve calcification of the anterior leaflet. Moderately severe (3+) eccentric mitral valve insufficiency. Tricuspid Valve Normal tricuspid valve. Mild tricuspid valve insufficiency. Right ventricular systolic pressure estimated to be 27 mmHg. Aortic Valve The aortic valve leaflets are not well visualized, especially in the short axis view, however, based upon the spectral Doppler information obtained there appears to be findings potentially compatible with mild or mild to moderate aortic valve stenosis. Pulmonic Valve The pulmonic valve is not well visualized. Great Vessels The aortic root is not well visualized. Pericardium/Pleural No pericardial effusion. Medication 20 gauge I.V. with prn adaptor inserted into right arm. Diluted definity 4ml given slow IV push to enhance endocardial definition. MMode/2D Measurements & Calculations LVIDd: 7.4 cm IVSd: 0.69 cm LVOT diam: 1.9 cm LVIDs: 6.6 cm LVPWd: 0.81 cm FS: 11.2 % LVOT area: 2.8 cm2 LAV(MOD-sp4): 60.2 ml LVAd ap4: 54.3 cm2 SV(MOD-sp4): 29.3 ml LVLd ap4: 9.5 cm EDV(MOD-sp4): 256.1 ml EDV(sp4-el): 264.1 ml LVAs ap4: 50.0 cm2 LVLs ap4: 9.2 cm ESV(MOD-sp4): 226.9 ml ESV(sp4-el): 229.7 ml EF(MOD-sp4): 11.4 % EF(sp4-el): 13.0 % SV(sp4-el): 34.4 ml LA A4 area: 19.3 cm2 RA A4 area: 13.1 cm2 Doppler Measurements & Calculations Ao V2 max: 251.4 cm/sec LV V1 max: 91.4 cm/sec SV(LVOT): 53.6 ml Ao max P.3 mmHg LV V1 max P.3 mmHg Ao V2 mean: 177.7 cm/sec LV V1 mean P.9 mmHg Ao mean P.3 mmHg LV V1 mean: 64.3 cm/sec Ao V2 VTI: 51.2 cm LV V1 VTI: 19.2 cm CARLEY(I,D): 1.0 cm2 CARLEY(V,D): 1.0 cm2 TR max dae: 244.5 cm/sec TR max P.9 mmHg ECHO/Echo Limited w/Contrast Interpretation Summary The study was technically limited. Contrast injection was performed. Severely dilated left ventricle. Severe segmental systolic dysfunction (see wall motion). The estimated ejection fraction is 25 %. Apical false tendon noted. The left atrium is mildly enlarged. There is mild mitral annular calcification. Moderate diffuse mitral valve thickening. Mild focal mitral valve calcification of the anterior leaflet. Moderately severe (3+) eccentric mitral valve insufficiency. Mild tricuspid valve insufficiency. The aortic valve leaflets are not well visualized, especially in the short axis view, however, based upon the spectral Doppler information obtained there appears to be findings pot entially compatible with mild or mild to moderate aortic valve stenosis. Right ventricular systolic pressure estimated to be 27 mmHg. Unable to assess diastolic dysfunction. Comment: Based upon the 2D echocardiographic and contrast enhanced images obtai holly there appeared to be findings compatible with a left ventricular apical false tendon, however, a small left ventricular apical thrombus cannot be excluded. Ordering Physician: Nohelia Saxena Referring Physician: Lori Jordan Performed By: Kash Tomlin RCS
== END | disposition home or self-care (01) ==
LOC: CVS 08:41
PROVIDERS: PCP Nurse Practitioner Family; Referring Provider Nurse Practitioner Gerontology; Visit Provider Nurse Practitioner Gerontology
DX: I50.20 Unspecified systolic (congestive) heart failure (principal); I08.1 Rheumatic disorders of both mitral and tricuspid valves
CPT/HCPCS: 93308; Q9957; A4216; C8924

== ENCOUNTER 2022-11-20 04:48 | Emergency (ER) | payer OTHER, SELFPAY ==
[2022-11-20 04:48] VITALS: BP 127/86; PULSE 99; RESP 18; TEMP 36.4; O2SAT 95; BMI 24.7
--- NOTE | 2022-11-20 05:06 | RAD_ITS ---
EXAM: XR CHEST, 2 VIEWS CLINICAL INDICATION: COUGH TECHNIQUE: Frontal and lateral views of the chest. This report was created using [employer]™ Interactive report generation technology. COMPARISON: Previous chest radiograph of 02/12/2022. FINDINGS: LUNGS AND PLEURAL SPACES: A moderate to large right pleural effusion is present, opacifying the inferior half the right hemithorax; this right pleural effusion has mildly increased in size since the prior study. As on the prior study, there is infiltrate within the right midlung adjacent to the pleural fluid collection, due to atelectasis and/or pneumonia. Patchy airspace disease has developed within the retrocardiac portion of the left lower lobe. Lateral view shows slight blunting of the left posterior costophrenic angle indicating development of a small left pleural effusion. Left lung hilum is slightly more prominent than on the prior study due to overlying airspace disease versus mild developing adenopathy. HEART: Heart size is unchanged. No pulmonary venous hypertension. MEDIASTINUM: There is slight deviation of the tracheal air column at the level thoracic inlet suggesting right-sided thyroid nodule or thyroid enlargement. BONES/JOINTS: Degenerative spurring noted throughout the thoracic spine. No lytic osseous lesion. No thoracic wedge compression fracture. RAD/Chest PA and Lateral IMPRESSION: 1. Moderate to large right pleural effusion with adjacent infiltrate such as atelectasis or pneumonia; the right pleural effusion has mildly enlarged. 2. Interval development of patchy retrocardiac airspace disease, consistent with pneumonia. Associated minimal left pleural effusion. Electronically Signed: Hudson Gr MD at 5:49 EDT ,
--- NOTE | 2022-11-20 05:06 | EKG12_ITS ---
Test Reason : SOB Blood Pressure : / mmHG Vent. Rate : 081 BPM Atrial Rate : 081 BPM P-R Int : 220 ms QRS Dur : 136 ms QT Int : 394 ms P-R-T Axes : 033 -11 100 degrees QTc Int : 457 ms Sinus rhythm with 1st degree A-V block with occasional Premature ventricular complexes Left ventricular hypertrophy with QRS widening and repolarization abnormality ( Oliver product ) Abnormal ECG Confirmed by ANA CRISTINA DORADO ([id number]), industrial editor YOLANDA YANES ([id number]) on 11/24/2022 8:01:12 AM Referred By: Confirmed By:ANA CRISTINA DORADO
[2022-11-20 05:18] LABS: Absolute Lymphocyte Count 0.96 X10^3/uL (0.83-4.51); Absolute Neutrophil Count 6.3 X10^3/uL (2.0-7.7); Basophil# 0.07 X10^3/uL; Basophil% 0.8 % (0-1); Eosinophil# 0.11 X10^3/uL; Eosinophils% 1.3 % (0-5); Hematocrit 41.1 % (40-54); Hemoglobin 13.7 g/dL (13.0-16.5); Lymphocyte # 0.96 X10^3/ul (0.83-4.51); Lymphocyte % 11.6 % (19-41); Mean Corp Hgb Conc 33.3 g/dL (32-36); Mean Corpuscular Hgb 29.4 pg (27.0-32.0); Mean Corpuscular Volume 88.2 fL (80-94); Mean Platelet Vol. 8.5 fl (6.2-12.0); Monocyte% 9.7 % (0-10); NRBC Flagged by Analyzer 0 % (0-5); Neutrophil # 6.29 X10^3/uL (2.7-7.7); Neutrophil % 76.1 % (47-70); Platelet Count 229 K/mm3 (150-450); RBC Distribution Width CV 13.5 % (11.6-14.6); RBC Distribution Width SD 43.7 fl (35.1-43.9); Red Blood Count 4.66 M/mm3 (4.6-6.2); White Blood Count 8.3 K/mm3 (4.4-11.0)
[2022-11-20 05:31] LABS: Anion Gap 6 (5-15); BUN 26 mg/dL (7-18); BUN/Creat Ratio 24.1 RATIO (10-20); Calcium,Total 8.9 mg/dL (8.5-10.1); Chloride 110 mmol/L (98-107); Creatinine, Serum 1.08 mg/dL (0.70-1.30); EST Glomerular Filtration Rate 70 mL/min (>60); Est Glom Filt Rate - Afr Amer 85 mL/min (>60); Estimated Creatinine Clearance 53.66 ml/min; Glucose 119 mg/dL (74-106); Magnesium 2.1 mg/dL (1.6-2.6); Potassium 3.7 mmol/L (3.5-5.1); Sodium Level 138 mmol/L (136-145)
--- NOTE | 2022-11-20 05:37 | EDS_ITS ---
HPI History of Present Illness Chief Complaint: Shortness of Breath Narrative Narrative: Patient is a 77-year-old male with past medical history of coronary artery disease as well as aortic stenosis and congestive heart failure. He states that he has been coughing for quite some time. He states he feels like he has been having increasing shortness of breath however over the past few days. He denies any known sick contacts fevers or chills or chest pain associated with this. He states he has been taking his medications as directed. 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 Mitral regurgitation Moderate aortic stenosis Non-rheumatic mitral regurgitation PVC (premature ventricular contraction) Home Medications aspirin 81 mg tablet,delayed release (Adult Aspirin Regimen) 81 mg PO DAILY 03/01/22 [History Last Taken Unknown] nitroglycerin 0.4 mg sublingual tablet 0.4 mg sublingual Q5-15M PRN Angina 03/01/22 [History Last Taken Unknown] clopidogrel 75 mg tablet (Plavix) 75 mg PO DAILY #90 tabs 05/04/22 [Rx Last Taken Unknown] pantoprazole 20 mg tablet,delayed release 20 mg PO DAILY #90 tabs 05/04/22 [Rx Last Taken Unknown] latanoprost 0.005 % eye drops 1 drp ophthalmic (eye) DAILY 06/11/22 [History Last Taken Unknown] sacubitril 24 mg-valsartan 26 mg tablet (Entresto) 1 tab PO BID 06/11/22 [History Last Taken Unknown] doxycycline monohydrate 100 mg capsule 100 mg PO BID #14 CAPSULES 11/20/22 [Rx Last Taken Unknown] furosemide 40 mg tablet (Lasix) 40 mg PO DAILY 7 days #7 tabs 11/20/22 [Rx Last Taken Unknown] Allergy/AdvReac Type Severity Reaction Status Date / Time metoprolol Allergy Intermediate Rash Verified 11/20/22 04:52 Sulfa (Sulfonamide Allergy Vomiting Verified 11/20/22 04:52 Antibiotics) Family History Mother Heart disease Father No problems noted. Surgical History Hx of tonsillectomy S/P coronary artery stent placement Social History household members: spouse housing: house Smoking Status: Never smoker alcohol intake: never substance use type: does not use ROS ROS ED Constitutional Constitutional ED: Denies chills or fever(s) ENT ENT ED: Denies sore throat Cardiovascular Cardiovascular: Reports palpitations; Denies chest pain Respiratory/Chest Respiratory/Chest: Reports cough and dyspnea Gastrointestinal Gastrointestinal: Denies abdominal pain, diarrhea, nausea or vomiting Genitourinary Genitourinary ED: Denies dysuria Musculoskeletal Musculoskeletal: Denies myalgias Integumentary Denies rash Neurologic Neurologic: Denies headache(s) Hematologic/Lymphatic Hematologic/Lymphatic: Denies easy bleeding or easy bruising EXAM Physical Exam Const Vital Signs: 11/20/22 04:48 11/20/22 04:56 Temperature 97.6 F L Temperature Source Temporal Pulse Rate 99 Respiratory Rate 18 Respiratory Effort Normal Blood Pressure 127/86 H Blood Pressure Mean 99 Pulse Ox 95 Oxygen Delivery Method Room Air Positive well nourished and well developed General Appearance ED: well developed HEENT Reports moist mucous membranes HEENT Narrative: No tongue or lip swelling no oral lesions no airway edema or compromise. There is mild cobblestoning the posterior pharynx consistent with sinus drainage Eyes PERRL and EOMs intact bilaterally General Eye ED: Negative for pale conjunctiva Neck supple and no JVD Resp normal respiratory effort Resp Narrative: Breath sounds are diminished in the right middle and lower lobes with crackles noted. Remainder of lung [place] are clear. No nasal flaring retractions tachypnea or accessory muscle use. No orthopnea noted with lying flat. Cardio regular rate and regular rhythm Rate: other Other Details: Patient has frequent ectopic beats noted GI normal to inspection, nondistended, normoactive bowel sounds, non-tender, non- distended and no masses GI Narrative: No voluntary guarding or rigidity. No pulsatile mass or fluid wave Auscultation: normoactive bowel sounds Palpation: soft Extremity normal to inspection Extremity Narrative: Trace pitting edema to the bilateral lower extremities is equal and symmetric. Negative Homans' sign bilaterally Neuro oriented x3 and CN's II-XII intact bilaterally Sensorium / Orientation: alert Psych Psych Narrative: Patient has a flat affect Skin no rashes or lesions noted MDM MDM MDM Narrative Medical decision making narrative: Patient presented to the ER in no acute respiratory distress satting in the mid 90s on room air. On physical exam he had diminished breath sounds on the right with crackles concerning for CHF exacerbation as he does have a past medical history of this. There is also concern that this is shortness of breath could be due to infectious process such as pneumonia or COVID or secondary to acute blood loss anemia. Therefore basic blood work was obtained. Labs revealed no clinically significant findings other than his proBNP being elevated at approximately 950. Chest x-ray showed a large right-sided pleural effusion consistent with his physical exam which had worsened from roughly 9 months ago. Despite patient reporting shortness of breath with lying flat when this was done so there is no drop in his pulse ox. He was ambulated and his pulse ox was 94% on room air to start and only dropped by 2 points to 92%. Therefore at this time he is not hypoxic at rest or with ambulation he is not in respiratory distress and he is not requiring admission. There is question of developing infiltrate on the chest x-ray he is afebrile and does not have a white count and my concern for infection is low. However based on the persistent cough I do feel a 1 week course of antibiotics is appropriate. Also patient has been on Entresto since September with no improvement of his symptoms and with the worsening pleural effusion 1 week of Lasix will be added to help with volume reduction. He was advised to follow-up with pulmonology as he may need a thoracentesis but at this time as he does not have signs of respiratory distress or hypoxia or desaturation with ambulation is otherwise safe for discharge. History & Record Review Discussion w/independent historian: Patient and Family Lab Data Attestation: I reviewed the patient's lab results. Labs: Laboratory Results - last 24 hr 11/20/22 11/20/22 11/20/22 04:55 04:55 04:55 WBC 8.3 RBC 4.66 Hgb 13.7 Hct 41.1 MCV 88.2 MCH 29.4 MCHC 33.3 RDW Std Deviation 43.7 RDW Coeff of Jorge 13.5 Plt Count 229 MPV 8.5 Immature Gran % (Auto) 0.500 Neut % (Auto) 76.1 H Lymph % (Auto) 11.6 L [place] % (Auto) 9.7 Eos % (Auto) 1.3 Baso % (Auto) 0.8 Absolute Neuts (auto) 6.3 Absolute Lymphs (auto) 0.96 Nucleated RBC % 0 Sodium 138 Potassium 3.7 Chloride 110 H Carbon Dioxide 22.0 Anion Gap 6 BUN 26 H Creatinine 1.08 Estim Creat Clear Calc 53.66 Est GFR (MDRD) Af Amer 85 Est GFR (MDRD) Non-Af 70 BUN/Creatinine Ratio 24.1 H Glucose 119 H Calcium 8.9 Magnesium 2.1 B-Natriuretic Peptide 956.0 H Radiography Diagnostic Testing: Clinical Impression(s) from Imaging Studies Chest X-Ray 11/20/22 05:06 IMPRESSION: 1. Moderate to large right pleural effusion with adjacent infiltrate such as atelectasis or pneumonia; the right pleural effusion has mildly enlarged. 2. Interval development of patchy retrocardiac airspace disease, consistent with pneumonia. Associated minimal left pleural effusion. Electronically Signed: Hudson Gr MD at 5:49 EDT , Chest x-ray as interpreted by the emergency medicine physician shows bilateral pleural effusions with the left being small and the right being larger with questionable airspace disease Discharge Plan Triage Chief Complaint: Shortness of Breath ED Provider: Devan Reed Dx/Rx/DC Orders Clinical Impression: Bilateral pleural effusion, Congestive heart failure (CHF), Moderate aortic stenosis, PVC (premature ventricular contraction) Instructions: Coping with Heart Failure, ED Pleural Effusion Prescriptions: New furosemide [Lasix] 40 mg tablet 40 mg PO DAILY 7 Days Qty: 7 0RF doxycycline monohydrate 100 mg capsule 100 mg PO BID Qty: 14 0RF No Action aspirin [Adult Aspirin Regimen] 81 mg tablet,delayed release (DR/EC) 81 mg PO DAILY Hold Instructions: warfarin nitroglycerin 0.4 mg tablet, sublingual 0.4 mg sublingual Q5-15M PRN (Reason: Angina) Rx Instructions: do not exceed 3 doses per episode clopidogrel [Plavix] 75 mg tablet 75 mg PO DAILY Qty: 90 3RF pantoprazole 20 mg tablet,delayed release (DR/EC) 20 mg PO DAILY Qty: 90 3RF Entresto 24-26 mg tablet 1 tab PO BID latanoprost 0.005 % drops 1 drp ophthalmic (eye) DAILY Primary Care Provider: Lori Jordan NP Referrals: Adrian Key DO [Med Staff - Active Staff] - Lori Jordan METAL FABRICATING INSPECTOR, METAL FABRICATING INSPECTOR-C [Primary Care Provider] - Activity Restrictions/Additional Instructions: You have persistent cough and shortness of breath secondary to an enlarging pleural effusion. Because of this take the Lasix as directed for the next week on top of your normal medication. There is also question of developing infection so take the antibiotic as directed. Follow-up with pulmonology/Dr. Key as you may need a thoracentesis to completely resolve the fluid in your lung. If you have any further concerns please return the hospital for repeat evaluation Disposition Disposition: Home, Self Care
[2022-11-20] MEDS: Furosemide 40 MG/4 ML Vial IV (05:48)
[2022-11-20 06:08] VITALS: O2SAT 94
[2022-11-20 06:23] VITALS: BP 157/75; RESP 18; O2SAT 94
== END 2022-11-20 06:26 | disposition home or self-care (01) ==
PROVIDERS: Emergency Provider Emergency Medicine; PCP Nurse Practitioner Family; Visit Provider Emergency Medicine
DX: I50.9 Heart failure, unspecified (principal); I25.10 Atherosclerotic heart disease of native coronary artery without angina pectoris; I49.3 Ventricular premature depolarization; I08.0 Rheumatic disorders of both mitral and aortic valves; J90 Pleural effusion, not elsewhere classified; Z79.82 Long term (current) use of aspirin; Z79.899 Other long term (current) drug therapy; Z79.01 Long term (current) use of anticoagulants; Z79.02 Long term (current) use of antithrombotics/antiplatelets; Z95.5 Presence of coronary angioplasty implant and graft
CPT/HCPCS: 71046; 80048; 83735; 83880; 85025; 87428; 93005; 96374; 99283; A4216; J1940

== ENCOUNTER → 2022-12-01 | Outpatient (CLI) | payer SELFPAY, OTHER ==
--- NOTE | 2022-12-01 08:27 | RAD_ITS ---
INDICATION: Pleural Effusion EXAMINATION/TECHNIQUE: X-RAY - XR Chest 2 Views COMPARISON: 11/20/2022. FINDINGS: LINES/DEVICES: None. LUNGS: Mild residual lower lobe infiltrate and small right pleural effusion both of which are significantly decreased since prior study. CHF resolved. MEDIASTINUM AND CARDIOVASCULAR STRUCTURES: Cardiac silhouette not enlarged. Central airways and mediastinal contour are unremarkable. BONES AND SOFT TISSUES: Unremarkable. RAD/Chest PA and Lateral IMPRESSION: Small right lower lobe infiltrate with small right pleural effusion. Electronically Signed: Sacha Mcpherson MD, CARO at 17:22 EDT ,
== END | disposition home or self-care (01) ==
LOC: RAD 08:17
PROVIDERS: PCP Nurse Practitioner Family; Referring Provider Internal Medicine Critical Care Medicine; Visit Provider Internal Medicine Critical Care Medicine
DX: J90 Pleural effusion, not elsewhere classified (principal); I50.9 Heart failure, unspecified
CPT/HCPCS: 71046

== ENCOUNTER → 2023-01-20 | Outpatient (CLI) | payer SELFPAY, OTHER ==
--- NOTE | 2023-01-20 10:32 | ECHOCS_ITS ---
Reason For Study: EVALUATE EF Procedure This was a 2D Doppler, Color Flow transthoracic echocardiogram. The study was technically difficult. Contrast injection was performed. Exam performed in department. Left Ventricle Severely dilated left ventricle. The estimated ejection fraction is 20 %. Severe segmental systolic dysfunction (see wall motion). Stage 2 diastolic dysfunction. [place] : Akinetic. Mid-Anterior : Severely Hypokinetic. Anterio-Basal: Normal. Mid-Inferior: Akinetic. Mid-Posterior: Akinetic. The rest of the wall segments are hypokinetic. Right Ventricle Normal RV size. Normal systolic function. [place] The left atrium is mildly enlarged. Normal right atrium. Mitral Valve Bileaflet diffuse mitral valve thickening. Mild-Moderate (1-2+) eccentric mitral valve insufficiency. Moderate (2+) posteriorly directed mitral valve insufficiency. Tricuspid Valve Normal tricuspid valve. Aortic Valve Trisinus/trileaflet aortic valve. Mild diffuse aortic valve thickening. Peak aortic valve gradient 42 mmHg. Mean aortic valve gradient 26 mmHg. Mild aortic stenosis. Pulmonic Valve Normal pulmonic valve. Mild (1+) pulmonic valve insufficiency. Great Vessels Normal aortic root. The pulmonary artery is normal size. Normal inferior vena cava. Pericardium/Pleural No pericardial effusion. Medication 22 gauge I.V. with prn adaptor inserted into right arm. Diluted definity 2ml given slow IV push to enhance endocardial definition. MMode/2D Measurements & Calculations LVIDd: 7.5 cm IVSd: 0.74 cm LVOT diam: 2.1 cm LVIDs: 6.7 cm LVPWd: 0.88 cm RVDd: 3.4 cm FS: 10.7 % LVOT area: 3.5 cm2 Ao root diam: 3.5 cm LAV(MOD-bp): 111.0 ml LVAd ap4: 58.1 cm2 LAV(MOD-bp) Indexed: 60.5 ml/m2 LVLd ap4: 9.5 cm LAV(MOD-sp2): 130.3 ml EDV(MOD-sp4): 290.0 ml LAV(MOD-sp4): 77.1 ml EDV(sp4-el): 301.8 ml LVAs ap4: 50.5 cm2 LVLs ap4: 9.3 cm ESV(MOD-sp4): 222.2 ml ESV(sp4-el): 232.9 ml EF(MOD-sp4): 23.4 % EF(sp4-el): 22.8 % SV(MOD-sp4): 67.8 ml SV(sp4-el): 68.9 ml LA A4 area: 21.3 cm2 LA dimension(2D): 5.2 cm RA A4 area: 17.8 cm2 Time Measurements MV dec time: 0.21 sec Doppler Measurements & Calculations MV E max jeremy: 174.4 cm/sec Lat Peak E' Jeremy: 7.2 cm/sec Med Peak E' Jeremy: 5.1 cm/sec MV A max jeremy: 103.7 cm/sec E/E' lat: 24.3 E/E' med: 34.1 MV E/A: 1.7 MV V2 max: 165.6 cm/sec MV dec slope: 837.0 cm/sec2 Ao V2 max: 324.8 cm/sec MV max P.0 mmHg Ao max P.2 mmHg MV V2 mean: 90.5 cm/sec Ao V2 mean: 235.8 cm/sec MV mean P.9 mmHg Ao mean P.4 mmHg MV V2 VTI: 46.6 cm Ao V2 VTI: 87.1 cm MVA(VTI): 2.3 cm2 AV (velocity ratio): 0.35 CARLEY(I,D): 1.2 cm2 CARLEY(V,D): 1.3 cm2 LV V1 max: 122.6 cm/sec MR max jeremy: 485.4 cm/sec SV(LVOT): 106.2 ml LV V1 max P.0 mmHg MR max P.2 mmHg LV V1 mean P.6 mmHg MR mean jeremy: 358.8 cm/sec LV V1 mean: 89.9 cm/sec MR mean P.3 mmHg LV V1 VTI: 30.1 cm MR VTI: 191.0 cm PA V2 max: 71.8 cm/sec PA V2 mean: 52.2 cm/sec ECHO/Echo Complete W/ Contrast Interpretation Summary Severely dilated left ventricle. The estimated ejection fraction is 20 %. Severe segmental systolic dysfunction (see wall motion). Stage 2 diastolic dysfunction. Moderate (2+) posteriorly directed mitral valve insufficiency. Contrast injection was performed. Compared to previous study, the left ventricu lar systolic function is the same.. Ordering Physician: Henrik Villarreal Referring Physician: Henrik Villarreal Performed By: Savannah Ferro RCS
== END | disposition home or self-care (01) ==
LOC: CVS 10:32
PROVIDERS: PCP Nurse Practitioner Family; Referring Provider Nurse Practitioner Family; Visit Provider Nurse Practitioner Family
DX: R06.02 Shortness of breath (principal); R04.2 Hemoptysis
CPT/HCPCS: 93306; Q9957; A4216; C8929

== ENCOUNTER 2023-06-02 15:55 | Emergency (ER) | payer OTHER, SELFPAY ==
[2023-06-02] VITALS (8 sets, daily range): BP systolic 94–119; BP diastolic 62–76; PULSE 78–97; RESP 16–20; TEMP 36.2; O2SAT 93–99; BMI 23.9
[2023-06-02 17:55] LABS: Absolute Lymphocyte Count 0.61 X10^3/uL (0.83-4.51); Absolute Neutrophil Count 9.8 X10^3/uL (2.0-7.7); Basophil# 0.03 X10^3/uL; Basophil% 0.3 % (0-1); Eosinophil# 0.01 X10^3/uL; Eosinophils% 0.1 % (0-5); Hematocrit 40.8 % (40-54); Hemoglobin 13.8 g/dL (13.0-16.5); Lymphocyte # 0.61 X10^3/ul (0.83-4.51); Lymphocyte % 5.5 % (19-41); Mean Corp Hgb Conc 33.8 g/dL (32-36); Mean Corpuscular Hgb 29.6 pg (27.0-32.0); Mean Corpuscular Volume 87.4 fL (80-94); Mean Platelet Vol. 8.7 fl (6.2-12.0); Monocyte# 0.65 X10^3/uL; Monocyte% 5.8 % (0-10); NRBC Flagged by Analyzer 0 % (0-5); Neutrophil # 9.83 X10^3/uL (2.7-7.7); Neutrophil % 87.8 % (47-70); Platelet Count 255 K/mm3 (150-450); RBC Distribution Width CV 13.2 % (11.6-14.6); Red Blood Count 4.67 M/mm3 (4.6-6.2); White Blood Count 11.2 K/mm3 (4.4-11.0)
[2023-06-02 18:11] LABS: ALB/GLOB Ratio 1.1 RATIO (0.9-2.4); AST(SGOT) 18 U/L (15-37); Alanine Aminotransfer ALT/SGPT 19 U/L (16-61); Albumin, Serum 3.9 g/dL (3.2-5.0); Alkaline Phosphatase 62 U/L (45-117); Anion Gap 8 (5-15); BUN 19 mg/dL (7-18); BUN/Creat Ratio 15.3 RATIO (10-20); Calcium,Total 9.1 mg/dL (8.5-10.1); Chloride 102 mmol/L (98-107); Creatinine, Serum 1.24 mg/dL (0.70-1.30); EST Glomerular Filtration Rate 60 mL/min (>60); Est Glom Filt Rate - Afr Amer 72 mL/min (>60); Estimated Creatinine Clearance 45.97 ml/min; Globulin 3.6 g/dL (2.2-4.2); Glucose 133 mg/dL (74-106); Lipase 19 U/L (13-75); Potassium 3.8 mmol/L (3.5-5.1); Protein, Total 7.5 g/dL (6.4-8.2); Sodium Level 136 mmol/L (136-145)
--- NOTE | 2023-06-02 18:33 | CT_ITS ---
ACR Level 3 findings have been noted. An addendum which confirms receipt of the report will follow. INDICATION: inguinal hernia EXAMINATION: CT Abdomen And Pelvis W/ Contrast Injection TECHNIQUE: Helically acquired images were obtained of the abdomen and pelvis after IV contrast. A radiation dose optimization technique was used for this scan. IV Contrast dosage and agent: IV 100mL [id number] Oral contrast: None. COMPARISON: None. FINDINGS: Visualized lung bases: Large right and small left pleural effusion. Liver: Unremarkable Gallbladder: Unremarkable Spleen: Unremarkable Pancreas: Unremarkable Adrenal Glands: Unremarkable Kidneys: Nonobstructing 1.3 cm stone in the left lower renal pole. Vasculature: Moderate aortoiliac atherosclerotic disease. GI Tract: Multiple dilated fluid-filled loops of small bowel measuring up to 3 cm in diameter. There is a left inguinal hernia containing a short loop of small bowel. Lymphadenopathy: None Peritoneum: No ascites. Bladder: Unremarkable Reproductive organs: Unremarkable Bones/Soft tissues: There are diffuse degenerative changes of the spine. CT/Abdomen/Pelvis W IV Cont ONLY IMPRESSION: Small bowel obstruction with transition point at a left inguinal hernia. Nonobstructing 1.3 cm stone in the left lower renal pole. Electronically Signed: Charlie Stuart MD at 19:22 EDT ,
--- NOTE | 2023-06-02 18:35 | ED.VIS.GI ---
HPI HPI - GI History of Present Illness Chief Complaint: Abd Pain Narrative Narrative: 78-year-old male with left lower quadrant abdominal pain. He points to the left lower abdomen and states its been hurting her all day. He states has been constipated and drank some prune juice but he has not taken a laxative. After further inquiry he pulled down the front of his pants and showed me a large inguinal mass which she states it started today. He states he had this before and it reduced itself. His family states they never were informed about it. He is never seen a surgeon for it. He states that this is very tender as well. No nausea, vomiting. No fevers or chills. He denies any abdominal surgeries previously. [facility] Medical History CAD (coronary artery disease), [place] coronary artery History of prostate cancer Hyperlipidemia LBBB (left bundle branch block) oil heaterman current use of anticoagulant Mitral regurgitation Moderate aortic stenosis Non-rheumatic mitral regurgitation PVC (premature ventricular contraction) Home Medications aspirin 81 mg tablet,delayed release (Adult Aspirin Regimen) 81 mg PO DAILY 03/01/22 [History Last Taken Unknown] nitroglycerin 0.4 mg sublingual tablet 0.4 mg sublingual Q5-15M PRN Angina 03/01/22 [History Last Taken Unknown] latanoprost 0.005 % eye drops 1 drp ophthalmic (eye) DAILY 06/11/22 [History Last Taken Unknown] furosemide 40 mg tablet 40 mg PO DAILY #90 tabs 12/02/22 [Rx Last Taken Unknown] spironolactone 25 mg tablet 12.5 mg PO Q OTHER DAY 01/12/23 [History Last Taken Unknown] pantoprazole 20 mg tablet,delayed release 20 mg PO DAILY #90 tabs 03/11/23 [Rx Last Taken Unknown] clopidogrel 75 mg tablet (Plavix) 75 mg PO DAILY #90 tabs 04/23/23 [Rx Last Taken Unknown] bisoprolol fumarate 5 mg tablet 2.5 mg (1/2 x 5 mg) PO DAILY #90 tabs 05/25/23 [Rx Last Taken Unknown] Allergy/AdvReac Type Severity Reaction Status Date / Time metoprolol Allergy Intermediate Rash Verified 06/02/23 15:59 Sulfa (Sulfonamide Allergy Vomiting Verified 06/02/23 15:59 Antibiotics) Family History Mother Heart disease Father No problems noted. Surgical History Hx of tonsillectomy S/P coronary artery stent placement Social History household members: spouse housing: house Smoking Status: Never smoker alcohol intake: never substance use type: does not use ROS ROS ED Constitutional Constitutional ED: Denies chills, fever(s) or sweats Eyes Eyes: Denies blurry vision or change in vision ENT ENT ED: Denies ear pain or sore throat Cardiovascular Cardiovascular: Denies chest pain, palpitations or racing heartbeat Respiratory/Chest Respiratory/Chest: Denies cough, dyspnea or sputum Gastrointestinal Gastrointestinal: Reports abdominal pain and constipation; Denies diarrhea, nausea or vomiting Genitourinary Genitourinary ED: Denies dysuria, hematuria or urinary frequency Musculoskeletal Musculoskeletal: Denies arthralgias, myalgias or neck pain Integumentary Denies abscess, Abrasions or rash Neurologic Neurologic: Denies headache(s), paresthesias or weakness Psychiatric Psychiatric: Denies anxiety, depression, suicidal ideation or suicidal thoughts Endocrine Endocrinology: Denies polydipsia or polyuria EXAM Physical Exam Const Vital Signs: 06/02/23 15:57 06/02/23 20:20 06/02/23 20:26 Temperature 97.2 F L Temperature Source Temporal Pulse Rate 85 97 Pulse Rate [1 (Initial Baseline)] 78 Pulse Rate [3] 85 Respiratory Rate 18 20 H Respiratory Rate [1 (Initial Baseline)] 18 Respiratory Rate [3] 16 Blood Pressure 119/72 104/76 Blood Pressure [1 (Initial Baseline)] 108/62 Blood Pressure [3] 94/69 Blood Pressure Mean 87 Pulse Ox 97 97 Oxygen Delivery Method Room Air Room Air Oxygen Delivery Method [1 (Initial Baseline)] Nasal Cannula Oxygen Delivery Method [3] Nasal Cannula Oxygen Flow Rate (L/min) Oxygen Flow Rate (L/min) [1 (Initial Baseline)] 4 Oxygen Flow Rate (L/min) [3] 4 06/02/23 20:35 06/02/23 20:40 06/02/23 20:45 Temperature Temperature Source Pulse Rate Pulse Rate [1 (Initial Baseline)] Pulse Rate [3] Respiratory Rate Respiratory Rate [1 (Initial Baseline)] Respiratory Rate [3] Blood Pressure Blood Pressure [1 (Initial Baseline)] Blood Pressure [3] Blood Pressure Mean Pulse Ox Oxygen Delivery Method Nasal Cannula Nasal Cannula Room Air Oxygen Delivery Method [1 (Initial Baseline)] Oxygen Delivery Method [3] Oxygen Flow Rate (L/min) 4 4 Oxygen Flow Rate (L/min) [1 (Initial Baseline)] Oxygen Flow Rate (L/min) [3] 06/02/23 20:50 06/02/23 22:00 Temperature Temperature Source Pulse Rate 95 Pulse Rate [1 (Initial Baseline)] Pulse Rate [3] Respiratory Rate 18 Respiratory Rate [1 (Initial Baseline)] Respiratory Rate [3] Blood Pressure 112/74 Blood Pressure [1 (Initial Baseline)] Blood Pressure [3] Blood Pressure Mean 86 Pulse Ox 93 Oxygen Delivery Method Room Air Room Air Oxygen Delivery Method [1 (Initial Baseline)] Oxygen Delivery Method [3] Oxygen Flow Rate (L/min) Oxygen Flow Rate (L/min) [1 (Initial Baseline)] Oxygen Flow Rate (L/min) [3] Positive well nourished General Appearance ED: NAD HEENT Reports TM's clear and moist mucous membranes Tympanic Membrane ED: Yes TM's clear Eyes PERRL Neck no lymphadenopathy Resp normal respiratory effort and clear to auscultation bilaterally Cardio regular rate and regular rhythm GI GI Narrative: Tenderness to palpation in the left lower quadrant. No peritoneal signs. There is a large inguinal mass which is tender to palpation and not reducible. Its not pulsatile. Back/Spine no CVA tenderness Neuro CN's II-XII intact bilaterally Sensorium / Orientation: alert Motor Exam: strength 5/5 throughout Psych mental status grossly normal Skin no wounds MDM MDM MDM Narrative Medical decision making narrative: Patient presenting with left lower quadrant abdominal pain differential includes diverticulitis, colitis, incarcerated hernia, strangulated hernia, constipation. CBC will be obtained to assess white blood cell count, hemoglobin, platelets. BMP to assess liver function, renal function, electrolytes. Lipase to assess for pancreatitis. Patient medicated with morphine, Zofran. CBC shows minimal white blood cell count elevation at 11.2. Hemoglobin stable 13.8. Platelets normal at 255. Creatinine is normal electrodes are normal. LFTs within normal limits. Lipase is negative. Urinalysis negative for infection. I ordered a CT of the abdomen pelvis with IV contrast which does show a left inguinal hernia which is a transition point for a small bowel obstruction. Discussed the case with Dr. Garcia who recommended that we try to sedate the patient with propofol and reduce the hernia. Patient was consciously sedated with propofol after consent. We did attempt to reduce the hernia and then he was sent for repeat CAT scan and which shows persistent hernia with associated small bowel obstruction. For this reason he will need surgery. Dr. Garcia ended transfer as the patient has a history of CHF and EF of 15%. She recommended NG tube be placed which was performed. Attempted to call [facility] who states that they are not taking any patients except for traumas NSTEMI's. Discussed the case with [facility] who states that they find patients waiting in other ERs for over a day and recommended transfer to another facility. Discussed with Jose and I am currently waiting for them to call back regarding transfer. They did suggest that they would probably take the patient in ER to ER transfer. Lab Data Labs: Laboratory Results - last 24 hr 06/02/23 06/02/23 17:35 21:37 WBC 11.2 H RBC 4.67 Hgb 13.8 Hct 40.8 MCV 87.4 MCH 29.6 MCHC 33.8 RDW Std Deviation 42.0 RDW Coeff of Jorge 13.2 Plt Count 255 MPV 8.7 Immature Gran % (Auto) 0.500 Neut % (Auto) 87.8 H Lymph % (Auto) 5.5 L [place] % (Auto) 5.8 Eos % (Auto) 0.1 Baso % (Auto) 0.3 Absolute Neuts (auto) 9.8 H Absolute Lymphs (auto) 0.61 L Nucleated RBC % 0 Sodium 136 Potassium 3.8 Chloride 102 Carbon Dioxide 26.0 Anion Gap 8 BUN 19 H Creatinine 1.24 Estim Creat Clear Calc 45.97 Est GFR (MDRD) Af Amer 72 Est GFR (MDRD) Non-Af 60 BUN/Creatinine Ratio 15.3 Glucose 133 H Calcium 9.1 Total Bilirubin 1.10 H AST 18 ALT 19 Alkaline Phosphatase 62 Total Protein 7.5 Albumin 3.9 Globulin 3.6 Albumin/Globulin Ratio 1.1 Lipase 19 Urine Color Yellow Urine Clarity Sl. Cloudy Urine pH 5.0 Ur Specific [place] 1.015 Urine Protein Negative Urine Glucose (UA) Normal Urine Ketones 5 H Urine Occult Blood 25 H Urine Nitrite Negative Urine Bilirubin Negative Urine Urobilinogen Normal Ur Leukocyte Esterase Negative Urine RBC 0 SEEN Urine WBC 0 SEEN Ur Squamous Epith Cells 0 SEEN Urine Bacteria 0 SEEN Urine Mucus 0 SEEN Radiography Diagnostic Testing: Clinical Impression(s) from Imaging Studies Abdomen/Pelvis CT 06/02/23 18:33 IMPRESSION: Small bowel obstruction with transition point at a left inguinal hernia. Nonobstructing 1.3 cm stone in the left lower renal pole. Electronically Signed: Charlie Stuart MD at 19:22 EDT , ADDENDUM: 06/02/232019 IMPRESSION: Small bowel obstruction with transition point at a left inguinal hernia. Nonobstructing 1.3 cm stone in the left lower renal pole. N.B. : Radha Saez OT, confirmed on 06/02/2023 20:14:04 (ET) that the healthcare facility has received the radiology report. Electronically Signed: Charlie Stuart MD at 19:22 EDT , Abdomen/Pelvis CT 06/02/23 20:31 IMPRESSION: Persistent small bowel obstruction with transition point at a left inguinal hernia. The hernia does not appear reduced. Nonobstructing 1.3 cm stone in the left lower renal pole. 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, Discussing w/Consultants, Arranging Admission or Transfer and Performing Direct Patient Care at Bedside Discharge Plan Triage Chief Complaint: Abd Pain ED Provider: Bry Stout Dx/Rx/DC Orders Prescriptions: No Action aspirin [Adult Aspirin Regimen] 81 mg tablet,delayed release (DR/EC) 81 mg PO DAILY Hold Instructions: warfarin nitroglycerin 0.4 mg tablet, sublingual 0.4 mg sublingual Q5-15M PRN (Reason: Angina) Rx Instructions: do not exceed 3 doses per episode latanoprost 0.005 % drops 1 drp ophthalmic (eye) DAILY spironolactone 25 mg tablet 12.5 mg PO Q OTHER DAY bisoprolol fumarate 5 mg tablet 2.5 mg PO DAILY Qty: 90 3RF furosemide 40 mg tablet 40 mg PO DAILY Qty: 90 3RF pantoprazole 20 mg tablet,delayed release (DR/EC) 20 mg PO DAILY Qty: 90 3RF clopidogrel [Plavix] 75 mg tablet 75 mg PO DAILY Qty: 90 3RF Primary Care Provider: Lori Jordan NP Referrals: Lori Jordan ROUTE SALES SPECIALIST, [employer] SALES SPECIALIST-C [Primary Care Provider] -
[2023-06-02] MEDS: Ondansetron 4 MG/2 ML Vial IV (19:02)
[2023-06-02] MEDS: Morphine 4 MG/ML Syringe IV ×2 (19:03→23:43)
--- NOTE | 2023-06-02 20:22 | PCM.HP.STD ---
HPI - General General Date of Service: 06/02/23 HPI Narrative VIOLA YEPEZ, is a 78 M who presents to the ER due to abdominal pain and left groin pain. Patient did have some nausea unable to vomit. Patient does have a left inguinal hernia. Patient states it has previously been out before but does not seem that he really pays attention to it not the best historian. Patient CT abdomen pelvis showed a transition area in the left inguinal hernia with bowel. Patient also significant past medical history for heart failure with ejection fraction of 20% patient is also on aspirin Plavix due to history of stent last February 2022. Patient CT on pelvis also shows moderate size right pleural effusion looks like back in November patient also had 1 which he was treated with Lasix patient is currently still on Lasix. [facility] Medical History CAD (coronary artery disease), [place] coronary artery History of prostate cancer Hyperlipidemia LBBB (left bundle branch block) intermediate current use of anticoagulant Mitral regurgitation Moderate aortic stenosis Non-rheumatic mitral regurgitation PVC (premature ventricular contraction) Home Medications aspirin 81 mg tablet,delayed release (Adult Aspirin Regimen) 81 mg PO DAILY 03/01/22 [History Last Taken Unknown] nitroglycerin 0.4 mg sublingual tablet 0.4 mg sublingual Q5-15M PRN Angina 03/01/22 [History Last Taken Unknown] latanoprost 0.005 % eye drops 1 drp ophthalmic (eye) DAILY 06/11/22 [History Last Taken Unknown] furosemide 40 mg tablet 40 mg PO DAILY #90 tabs 12/02/22 [Rx Last Taken Unknown] spironolactone 25 mg tablet 12.5 mg PO Q OTHER DAY 01/12/23 [History Last Taken Unknown] pantoprazole 20 mg tablet,delayed release 20 mg PO DAILY #90 tabs 03/11/23 [Rx Last Taken Unknown] clopidogrel 75 mg tablet (Plavix) 75 mg PO DAILY #90 tabs 04/23/23 [Rx Last Taken Unknown] bisoprolol fumarate 5 mg tablet 2.5 mg (1/2 x 5 mg) PO DAILY #90 tabs 05/25/23 [Rx Last Taken Unknown] Allergy/AdvReac Type Severity Reaction Status Date / Time metoprolol Allergy Intermediate Rash Verified 06/02/23 15:59 Sulfa (Sulfonamide Allergy Vomiting Verified 06/02/23 15:59 Antibiotics) Family History Mother Heart disease Father No problems noted. Surgical History Hx of tonsillectomy S/P coronary artery stent placement Social History household members: spouse housing: house Smoking Status: Never smoker alcohol intake: never substance use type: does not use ROS Constitutional Constitutional: Reports anorexia Eyes Eyes: Denies loss of vision ENT HEENT: Denies dysphagia Cardiovascular Cardiovascular: Denies chest pain Respiratory/Chest Respiratory/Chest: Denies cough Gastrointestinal Gastrointestinal: Reports abdominal pain and nausea; Denies vomiting Genitourinary Genitourinary: Denies dysuria Musculoskeletal Musculoskeletal: Denies joint swelling Integumentary Integumentary: Denies jaundice Neurologic Neurologic: Denies dizziness Psychiatric Psychiatric: Denies anxiety Hematologic/Lymphatic Hematologic/Lymphatic: Reports easy bruising Vital Signs Vital Signs Vital Signs: 06/02/23 15:57 Temperature 97.2 F L Temperature Source Temporal Pulse Rate 85 Respiratory Rate 18 Blood Pressure 119/72 Blood Pressure Mean 87 Pulse Ox 97 Oxygen Delivery Method Room Air Weight Weight: 157 lb 4.8 oz Body Mass Index (BMI) 23.9 Physical Exam Const oriented x3 Resp normal respiratory effort Cardio regular rate GI soft to palpation GI Narrative: Soft, tender mildly diffusely no peritoneal signs, incarcerated left inguinal hernia tender to palpation Inspection: abdominal distention Extremity normal to inspection Results Lab / Micro Data 06/02/23 17:35 06/02/23 17:35 Labs: Laboratory Results - last 24 hr 06/02/23 17:35: WBC 11.2 H, RBC 4.67, Hgb 13.8, Hct 40.8, MCV 87.4, MCH 29.6, MCHC 33.8, RDW Std Deviation 42.0, RDW Coeff of Jorge 13.2, Plt Count 255, MPV 8.7, Immature Gran % (Auto) 0.500, Neut % (Auto) 87.8 H, Lymph % (Auto) 5.5 L, [place] % (Auto) 5.8, Eos % (Auto) 0.1, Baso % (Auto) 0.3, Absolute Neuts (auto) 9.8 H, Absolute Lymphs (auto) 0.61 L, Nucleated RBC % 0, Sodium 136, Potassium 3.8, Chloride 102, Carbon Dioxide 26.0, Anion Gap 8, BUN 19 H, Creatinine 1.24, Estim Creat Clear Calc 45.97, Est GFR (MDRD) Af Amer 72, Est GFR (MDRD) Non-Af 60, BUN/Creatinine Ratio 15.3, Glucose 133 H, Calcium 9.1, Total Bilirubin 1.10 H, AST 18, ALT 19, Alkaline Phosphatase 62, Total Protein 7.5, Albumin 3.9, Globulin 3.6, Albumin/Globulin Ratio 1.1, Lipase 19 Radiology Impression Abdomen/Pelvis CT 06/02/23 18:33 IMPRESSION: Small bowel obstruction with transition point at a left inguinal hernia. Nonobstructing 1.3 cm stone in the left lower renal pole. Electronically Signed: Charlie Stuart MD at 19:22 EDT , ADDENDUM: 06/02/232019 IMPRESSION: Small bowel obstruction with transition point at a left inguinal hernia. Nonobstructing 1.3 cm stone in the left lower renal pole. N.B. : Radha Saez OT, confirmed on 06/02/2023 20:14:04 (ET) that the healthcare facility has received the radiology report. 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 transplanted heart: unga heart Qualified Code(s): I25.10 - Atherosclerotic heart disease of [place] coronary artery without angina pectoris PLAN: Plan Dr. Stout did assist with sedation to try to reduce his left inguinal hernia. Unsure if the hernia was able to be completely reduced as I did not get a 'pop'. We will check a repeat CT abdomen pelvis. Due to patient's significant cardiac history patient would not be a surgical candidate here and would recommend a tertiary referral if this did not get reduced. Discussed with patient and her family that we could watch him overnight however if he would require surgery he would be transferred to a tertiary care facility. Patient and family were agreeable with plan. Addendum: Patient's repeat CT abdomen pelvis without contrast still showed that there was bowel in the left inguinal region which was the point of transition. ER will place NG and transfer to tertiary care facility-- patient prefer [facility]. Briseyda Garcia M.D. Pager: [phone] [facility] [address] [place] [address], [address] [place] [address] Office: [phone]
[2023-06-02] MEDS: 0.9% Normal Saline (1000mL) 1,000 ML 999 ML IV (20:25)
[2023-06-02] MEDS: Propofol 200 MG/20 ML Vial IV BOLUS (20:26)
--- NOTE | 2023-06-02 20:31 | CT_ITS ---
INDICATION: Post reduction of inguinal hernia EXAMINATION: CT Abdomen And Pelvis W/O Contrast Injection TECHNIQUE: Helically acquired images were obtained of the abdomen and pelvis without the use of IV contrast. A radiation dose optimization technique was used for this scan. Oral contrast: None. COMPARISON: 06/02/2023 FINDINGS: Evaluation of the solid organs and vascular structures is limited without intravenous contrast. Visualized lung bases: Large right and small left pleural effusion. Liver: Unremarkable Gallbladder: Unremarkable Spleen: Unremarkable Pancreas: Unremarkable Adrenal Glands: Unremarkable Kidneys: Nonobstructing 1.3 cm stone in the left lower renal pole. Vasculature: Moderate aortoiliac atherosclerotic disease. GI Tract: Multiple dilated fluid-filled loops of small bowel measuring up to 3 cm in diameter. There is a left inguinal hernia containing a short loop of small bowel. Lymphadenopathy: None Peritoneum: No ascites. Bladder: Unremarkable Reproductive organs: Unremarkable Bones/Soft tissues: There are diffuse degenerative changes of the spine. CT/Abdomen/Pelvis without Cont IMPRESSION: Persistent small bowel obstruction with transition point at a left inguinal hernia. The hernia does not appear reduced. Nonobstructing 1.3 cm stone in the left lower renal pole. Electronically Signed: Charlie Stuart MD at 21:22 EDT ,
[2023-06-02 21:43] LABS: Bacteria 0 SEEN /hpf (None Seen); Mucous, Urine 0 SEEN /hpf (<or=2+); Red Blood Cells-Urine 0 SEEN /hpf (0-5); Squamous Epithelial Cells - UA 0 SEEN /hpf (0-5); White Blood Cells 0 SEEN /hpf (0-5)
[2023-06-02 21:56] LABS: Color, Urine Yellow (Yellow); Glucose, Dipstick Normal (Normal); Ketone-Dipstick 5 mg/dl (Negative); Leukocyte Esterase-Dipstick Negative /ul (Negative); Nitrite-Dipstick Negative (Negative); Occult Blood-Urine 25 /ul (Negative); Protein-Dipstick Negative (Negative); Specific Gravity, Urine 1.015 (1.002-1.030); Urine Bilirubin Dipstick Negative (Negative); Urine Clarity Sl. Cloudy (Clear); Urine Urobilinogen Normal (Normal)
[2023-06-02] MEDS: Oxymetazoline 0.05% 1 SPRAY SPRAY.BTL 2 SPRAY NASAL (21:57)
--- NOTE | 2023-06-02 22:00 | RAD_ITS ---
STUDY: X-RAY - ABDOMEN/PELVIS REASON FOR EXAM: Male, 78 years old. NG PLACEMENT TECHNIQUE: KUB COMPARISON: None. FINDINGS: Right pleural effusion and consolidation of the right lower lobe.. Mild nonspecific distention of the bowel in the upper abdomen. NG tube placement with tip in proximal gastric fundus. There is no demonstrated free abdominal air. The visualized liver, spleen and kidneys are grossly normal in size and morphology. Normal soft tissue structures. Lumbar spine demonstrates mild degenerative change RAD/Abdomen Single View (Portable) IMPRESSION: NG tube placement noted within the proximal gastric fundus. Electronically Signed: Martinez Del Toro MD at 22:29 EDT ,
[2023-06-03 00:41] VITALS: PULSE 82; RESP 18
== END 2023-06-03 00:41 | disposition short-term general hospital (02) ==
PROVIDERS: Emergency Provider Student in an Organized Health Care Education/Training Program; PCP Nurse Practitioner Family; Visit Provider Student in an Organized Health Care Education/Training Program
DX: K40.30 Unilateral inguinal hernia, with obstruction, without gangrene, not specified as recurrent (principal); Z79.82 Long term (current) use of aspirin; E78.5 Hyperlipidemia, unspecified; I25.10 Atherosclerotic heart disease of native coronary artery without angina pectoris; Z85.46 Personal history of malignant neoplasm of prostate; Z79.899 Other long term (current) drug therapy; Z79.02 Long term (current) use of antithrombotics/antiplatelets; Z95.5 Presence of coronary angioplasty implant and graft; R10.32 Left lower quadrant pain
CPT/HCPCS: 43752; 74018; 74176; 74177; 80053; 81001; 83690; 85025; 93005; 96361; 96374; 96375; 96376; 99285; J7030; Q9967; A4216; J2405